=== PATIENT | male | born 1975 | race Caucasian/White ===

== ENCOUNTER 2021-10-08 10:30 | Inpatient (IN) | payer MEDICARE ==
[~2021-10-08] VITALS: Ht 182.9 cm; Wt 84.8 kg
[2021-10-08] MEDS ORDERED: LACTULOSE SYRUP 10GM/15ML (ENULOSE) 30ML UDC PO PRN (11:15)
[2021-10-08] MEDS ORDERED: MELATONIN 3 MG TABLET PO PRN (11:15)
[2021-10-08] MEDS ORDERED: CALCIUM CARBONATE 500 MG (TUMS) TAB.CHEW PO PRN (11:15)
[2021-10-08] MEDS ORDERED: ONDANSETRON 4 MG (ZOFRAN) ORAL DISSOLVE TAB PO PRN (11:15)
[2021-10-08] MEDS ORDERED: ACETAMINOPHEN 325 MG TABLET PO PRN (11:15)
[2021-10-08] MEDS ORDERED: DOCUSATE SODIUM 100 MG (COLACE) CAP PO PRN (11:15)
[2021-10-08] MEDS ORDERED: FLEET ENEMA ADULT 1 EA BTL PR PRN (11:15)
[2021-10-08] MEDS ORDERED: LOPERAMIDE 2 MG (IMODIUM) TABLET PO PRN (11:15)
[2021-10-08] MEDS ORDERED: diphenhydrAMINE 25 MG TAB (BENADRYL) PO PRN (11:15)
[2021-10-08] MEDS ORDERED: BISACODYL 10 MG SUPP (DULCOLAX) PR PRN (11:15)
[2021-10-08] MEDS ORDERED: guaiFENesin/CODEINE (ROBITUSSIN AC) 10ML UDC PO PRN (11:15)
[2021-10-08] MEDS ORDERED: ALPRAZolam 0.25 MG (XANAX) TAB PO PRN (11:15)
[2021-10-08] MEDS ORDERED: BACI28.4 TP (13:02)
[2021-10-08] MEDS ORDERED: OXYC1TAB15 PO (13:02)
[2021-10-08] MEDS ORDERED: DIAZ5TAB49 PO (13:02)
[2021-10-08] MEDS ORDERED: BACL10TA PO (13:02)
[2021-10-08 15:00] VITALS: BP 124/84
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
--- NOTE | 2021-10-08 16:07 | Occupational Therapy Eval ---
OT Evaluation-General/PLF Medical Diagnosis Admission Date Oct 08, 2021 at 14:39 Medical Diagnosis: s/p T10-L4 Fusion Onset Date: Oct 01, 2021 Therapy Diagnosis Therapy Diagnosis: decreased ADL status Precautions Comments No lifting >15 lbs for 6 weeks, then nothing >35lbs for another 6 weeks. No excessive bending, lifting, twisting at the waist for the first 3 months. Wear rigid neck collar at all times when out of bed (do not have to wear in a shower). A soft collar can be worn in bed sleeping and when eating. Keep incision covered with plastic when showering for 2 weeks. Weight Bear Status Weight Bearing Restriction: Weight Bearing/Tolerated Location Restriction: LT FOOT (With CAM boot) Referral Physician: Garrick Referral Reason: Evaluation/Treatment Medical History Additional Medical History TBI, PTSD Current History Pt was cutting down a tree and woke up underneath. Chance fx L1, Superior end plate fx L2, R lateral mass fx C6, Avulsion fx L ankle (weight bearing as tolerated with CAM boot), S/P T10-L4 Fusion (10/01/21) Social History Pt lives in a trailer home by himself, has a ramp into the door made out of a plywood sheet. He may go to his S.O.'s house at discharge. Her house is a multistory house, 4-5 steps into the side door with a hand rail. The dining room could be converted into a bedroom on the main level and there is a bathroom on the main level. Pt would not have to go upstairs. ADL-Prior Level of Function SCALE: Activities may be completed with or without assistive devices. 6-Hkyvxdldcf-sficeax completes the activity by him/herself with no assistance from a helper. 5-Set-up or Clean-up Assistance-helper sets up or cleans up; patient completes activity. [place] assists only prior to or following the activity. 4-Supervision or Touching Assistance-helper provides verbal cues and/or touching/steadying and/or contact guard assistance as patient completes activity. Assistance may be provided throughout the activity or intermittently. 3-Partial/Moderate Assistance-helper does LESS THAN HALF the effort. [place] lifts, holds or supports trunk or limbs, but provides less than half the effort. 2-Substantial/Maximal Assistance-helper does MORE THAN HALF the effort. [place] lifts or holds trunk or limbs and provides more than half the effort. 5-Xdwfhhqjy-rlznpj does ALL the effort. Patient does none of the effort to complete the activity. Or, the assistance of 2 or more helpers is required for the patient to complete the activity. If activity was not attempted, code reason: 7-Patient Refused. 9-Not Applicable-not attempted and the patient did not perform the activity before the current illness, exacerbation or injury. 10-Not Attempted due to Environmental Limitations-(lack of equipment, weather restraints, etc.). 88-Not Attempted due to Medical Conditions or Safety Concerns. ADL PLOF Comments Pt lives by himself, his trailer has a walk in shower. Pt may go stay with his S.O. who has a walk in shower on the main level of her house. At [facility], pt was independent with all ADLS and functional mobility, uses a cane outdoors. He indicates he has a walker and shower chair somewhere. Self Care: Independent DME/Equipment: Shower DME/Equipment Comments Uses a cane or crutch in public. Owns a shower chair and a walker but unsure exactly where they are OT Current Status Subjective Pt agreeable to OT evaluation, then OT/PT cotreat. Rates pain 9/10 in his back and states he is very anxious and nervous about being at a new place. Mental Status/Objective Patient Orientation: Person, Place, Time, Situation Attachments: Other-See Comments (CAM boot, TLSO brace, rigid neck collar) Current Dentures/Partials: No Hand Dominance: Right Upper Extremity ROM Slightly limited due to back brace and neck brace. BUE shoulder flexion to approx 120 degrees. Upper Extremity Coordination WFL Upper Extremity Strength grossly 3/5, not formally tested due to back precautions. ADL-Treatment Eating (QC): 7 Oral Hygiene (QC): 7 Shower/Bathe Self (QC): 7 Upper Body Dressing (QC): 7 Lower Body Dressing (QC): 7 On/Off Footwear (QC): 7 Toileting Hygiene (QC): 7 Other Treatments OT evaluation complete. OT/PT cotreat due to skill of 2 clinicians required which a rehab department manager could not perform in order to decrease fall risk, increase activity tolerance, and due to pt's limitations in strength, endurance, pain, transfers/mobility, dynamic standing balance. OT focused on UE placement, cues for sequencing and safety and ADLs, PT focused on LE placement, gross overall movement, transfers/mobility. Pt completed functional transfers out of car, functional mobility using FWW, uneven surface and steps. Pt took seated rest breaks as needed, easily distracted with conversations requiring redirection to tasks. Pt then completed functional kitchen task, using a commodities broker as needed to locate 12 neil bags. Pt required cues to locate the last several neil bags and to look through all cabinets and drawers. OT educated pt on squaring up shoulders and body with cabinets in order to maintain precautions. Pt took seated rest break, then used FWW to transfer into his room. Post tx, pt supine in bed, call light in reach and all needs met. Supine <-> sit independently, CGA sit to/from stand transfers, CGA car transfer. Occasional cues for positioning and safety. Education OT Patient Education: Correct positioning, Energy conservation, Exercise program, Modified ADL techniques, Progress toward Goal/Update tx plan, Purpose of tx/functional activities, Rehab process Teaching Recipient: Patient Teaching Methods: Discussion Response to Teaching: Verbalize Understanding OT Short Term Goals Short Term Goals Time Frame: Oct 16, 2021 Shower/bathe self: 4 Lower body dressin Putting on/taking off footwear: 4 OT Child Welfare Social Worker Goals Longterm Goals Time Frame: Oct 30, 2021 Eating (QC): 6 Oral Hygiene (QC): 6 Toileting Hygiene (QC): 6 Shower/Bathe Self (QC): 6 Upper Body Dressing (QC): 6 Lower Body Dressing (QC): 6 On/Off Footwear (QC): 6 Additional Goals: 1-Demonstrate ADL Tasks, 2-Verbalize Understanding, 3- ImproveStrength/Lety 1=Demonstrate adherence to instructed precautions during ADL tasks. 2=Patient will verbalize/demonstrate understanding of assistive devices/modifications for ADL. 3=Patient will improve strength/tolerance for activity to enable patient to perform ADL's. OT Education/Plan Problem List/Assessment Assessment: Decreased Activ Tolerance, Decreased Safety Aware, Decreased UE Strength, Impaired Funct Balance, Impaired I ADL's, Impaired Self-Care Skills Discharge Recommendations Plan/Recommendations: Continue POC Equpiment Recommendations-D/C: Bath Chair, Nurse Advisor Treatment Plan/Plan of Care Patient would benefit from OT for education, treatment and training to promote independence in ADL's, mobility, safety and/or upper extremity function for ADL's. Plan of Care: ADL Retraining, Functional Mobility, Group Exercise/Act as Ind, UE Funct Exercise/Act Treatment Duration: Oct 30, 2021 Frequency: At least 5 of 7 days/Wk (IRF) Estimated Hrs Per Day: 1.5 hours per day Rehab Potential: Fair Time/GCodes Start Time: 14:45 Stop Time: 16:15 Total Time Billed (hr/min): 90 Billed Treatment Time [id number] OT evaluation, [id number] OT/PT cotreat 1, EVM (10'), FA 5 (80') JENNA BUSTOS OT Oct 08, 2021 16:07
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
[2021-10-08] MEDS ORDERED: BACLOFEN 10 MG (LIORESAL) TAB PO PRN (17:15)
[2021-10-08] MEDS: oxyCODONE/APAP 7.5-325 MG (PERCOCET 7.5) TABLET PO PRN ×2 (17:47→21:52)
[2021-10-08 21:18] VITALS: BP 97/69
[2021-10-08] MEDS: polyethylene glycoL POWDER 17 GM (MIRALAX) PACK PO SCH (21:27)
[2021-10-08] MEDS: SENNA W/DOCUSATE (SENOKOT S) TABLET PO SCH (21:28)
[2021-10-08] MEDS: DIAZEPAM 5 MG (VALIUM) TABLET PO PRN (21:51)
[2021-10-08] MEDS: DOCUSATE SODIUM 100 MG (COLACE) CAP PO SCH (21:51)
[2021-10-09 05:34] LABS: BASOPHILS # (AUTO) 0.1 10^3/uL (0.0-0.1); BASOPHILS % (AUTO) 1 % (0-10); EOSINOPHILS # (AUTO) 0.4 10^3/uL (0.0-0.3); EOSINOPHILS % (AUTO) 2 % (0-10); HEMATOCRIT 32 % (40-54); HEMOGLOBIN 10.6 g/dL (13.3-17.7); LYMPHOCYTES # (AUTO) 3.8 10^3/uL (1.0-4.0); LYMPHOCYTES % (AUTO) 18 % (12-44); MEAN CORPUSCULAR HEMOGLOBIN 30 pg (25-34); MEAN CORPUSCULAR HGB CONC 33 g/dL (32-36); MEAN CORPUSCULAR VOLUME 90 fL (80-99); MEAN PLATELET VOLUME 8.7 fL (9.0-12.2); MONOCYTES # (AUTO) 1.8 10^3/uL (0.0-1.0); MONOCYTES % (AUTO) 8 % (0-12); NEUTROPHILS # (AUTO) 13.9 10^3/uL (1.8-7.8); NEUTROPHILS % (AUTO) 66 % (42-75); PLATELET COUNT 678 10^3/uL (130-400); WHITE BLOOD COUNT 21.2 10^3/uL (4.3-11.0)
[2021-10-09 05:56] LABS: ALBUMIN 3.4 GM/DL (3.2-4.5)
[2021-10-09 05:57] LABS: POTASSIUM 3.9 MMOL/L (3.6-5.0)
[2021-10-09 05:59] LABS: TOTAL PROTEIN 7.2 GM/DL (6.4-8.2)
[2021-10-09 06:01] LABS: BILIRUBIN,TOTAL 0.7 MG/DL (0.1-1.0)
[2021-10-09 06:03] LABS: CREATININE SERUM 0.72 MG/DL (0.60-1.30)
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
[2021-10-09 07:02] LABS: LYMPHOCYTES % (MANUAL) 23 %; MONOCYTES % (MANUAL) 7 %; NEUTROPHILS % (MANUAL) 70 %; PLATELET CLUMPS SLIGHT; POLYCHROMASIA SLIGHT
[2021-10-09] MEDS: polyethylene glycoL POWDER 17 GM (MIRALAX) PACK PO SCH ×2 (07:26→21:35)
[2021-10-09] MEDS: DOCUSATE SODIUM 100 MG (COLACE) CAP PO SCH ×2 (07:26→21:35)
[2021-10-09] MEDS: SENNA W/DOCUSATE (SENOKOT S) TABLET PO SCH ×2 (07:26→21:35)
[2021-10-09] MEDS: ENOXAPARIN 40 MG/0.4 ML (LOVENOX) SYR SC SCH (07:26)
[2021-10-09 07:28] VITALS: BP 107/63
[2021-10-09] MEDS: oxyCODONE/APAP 7.5-325 MG (PERCOCET 7.5) TABLET PO PRN ×4 (07:31→20:33)
[2021-10-09] MEDS: BACITRACIN OINTMENT 28 GM TUBE TP SCH (08:24)
--- NOTE | 2021-10-09 09:27 | Occupational Ther Daily Note ---
OT Current Status-Daily Note Subjective Pt in bathroom on OT arrival, agreeable to OT Tx. 9/10 pain in neck and back, nurse notified and medication provided. ADL-Treatment Therapy Code Descriptions/Definitions Functional Josephine Measure: 0=Not Assessed/NA 4=Minimal Assistance 1=Total Assistance 5=Supervision or Setup 2=Maximal Assistance 6=Modified Josephine 3=Moderate Assistance 7=Complete IndependenceSCALE: Activities may be completed with or without assistive devices. 0-Jryvnnylhj-ayntwcq completes the activity by him/herself with no assistance from a helper. 5-Set-up or Clean-up Assistance-helper sets up or cleans up; patient completes activity. [place] assists only prior to or following the activity. 4-Supervision or Touching Assistance-helper provides verbal cues and/or touching/steadying and/or contact guard assistance as patient completes activit y. Assistance may be provided throughout the activity or intermittently. 3-Partial/Moderate Assistance-helper does LESS THAN HALF the effort. [place] lifts, holds or supports trunk or limbs, but provides less than half the effort. 2-Substantial/Maximal Assistance-helper does MORE THAN HALF the effort. [place] lifts or holds trunk or limbs and provides more than half the effort. 7-Qsbgdchrp-fxngog does ALL the effort. Patient does none of the effort to complete the activity. Or, the assistance of 2 or more helpers is required for the patient to complete the activity. If activity was not attempted, code reason: 7-Patient Refused. 9-Not Applicable-not attempted and the patient did not perform the activity before the current illness, exacerbation or injury. 10-Not Attempted due to Environmental Limitations-(lack of equipment, weather restraints, etc.). 88-Not Attempted due to Medical Conditions or Safety Concerns. Eating (QC): 6 (Per pt report) Oral Hygiene (QC): 6 (IND with oral care, pt does not complete prior but able to use mouthwash independently.) Shower/Bathe Self (QC): 3 (Min A with washing buttocks. Pt able to wash/dry UEs, chest/abdomen, LEs and periarea seated, usng figure 4 method to wash LEs. Min verbal cues required to maintain precautions.) Upper Body Dressing (QC): 3 (Assistance provided with back and neck brace. Pt able to doff/don pull overshirt.) Lower Body Dressing (QC): 4 (CGA, pt able to thread LEs into pants using figure 4 method, CGA in stand for pant hike.) On/Off Footwear: 3 (Pt able to doff/don R gripper sock and shoe. Assistance with L CAM boot.) Toileting Hygiene (QC): 3 (Min A with hygiene, pt able to manage clothing.) Toilet Transfer (QC): 4 (SBA on/off toilet.) Other Treatment Pt seated on toilet, then used FWW to transfer to IA. Pt doffed braces and CAM boot, as well as clothing. Pt completed shower, required min verbal cues to maintain precautions throughout task. Pt instructed to remain seated throughout the entire shower due to not having CAM boot on, pt agreeable and followed instructions. Pt donned clothing and braces on SC, then used FWW to go to sink to complete oral care. Pt transferred to recliner in his room, [facility]. After rest break, pt used FWW to go into therapy gym, [facility]. In order to increase BUE strength, activity tolerance, and fine motor coordination, pt completed nut/bolt task, placing/removing nuts and bolts. OT/PT cotreat due to skill of 2 clincians required which a rehab aide could not perform in order to coordinate UE/LEs, decrease fall risk, and due to pt's limitations in pain, endurance and dynamic standing balance. OT focused on UE placement, cues to maintain precautions and for sequencing and safety, PT focused on LE placement, gross overall movement, dynamic standing balance. Pt stood at FWW, hitting balloon back and forth, without supporting UEs on FWW. Pt able to complete 2 rounds, a few minutes each round. Post tx, pt in gym with PT, all needs met. Education OT Patient Education: Correct positioning, Energy conservation, Exercise program, Modified ADL techniques, Progress toward Goal/Update tx plan, Purpose of tx/functional activities, Rehab process Teaching Recipient: Patient Teaching Methods: Discussion Response to Teaching: Verbalize Understanding OT Short Term Goals Short Term Goals Time Frame: Oct 16, 2021 Shower/bathe self: 4 Lower body dressin Putting on/taking off footwear: 4 OT [facility] Goals [facility] Goals Time Frame: Oct 30, 2021 Eating (QC): 6 Oral Hygiene (QC): 6 Toileting Hygiene (QC): 6 Shower/Bathe Self (QC): 6 Upper Body Dressing (QC): 6 Lower Body Dressing (QC): 6 On/Off Footwear (QC): 6 Additional Goals: 1-Demonstrate ADL Tasks, 2-Verbalize Understanding, 3-Impro veStrength/Lety 1=Demonstrate adherence to instructed precautions during ADL tasks. 2=Patient will verbalize/demonstrate understanding of assistive devices/modifications for ADL. 3=Patient will improve strength/tolerance for activity to enable patient to perform ADL's. OT Education/Plan Problem List/Assessment Assessment: Decreased Activ Tolerance, Decreased UE Strength, Impaired Funct Balance, Impaired I ADL's, Impaired Self-Care Skills Discharge Recommendations Plan/Recommendations: Continue POC Treatment Plan/Plan of Care Patient would benefit from OT for education, treatment and training to promote independence in ADL's, mobility, safety and/or upper extremity function for ADL's. Plan of Care: ADL Retraining, Functional Mobility, Group Exercise/Act as Ind, UE Funct Exercise/Act Treatment Duration: Oct 30, 2021 Frequency: At least 5 of 7 days/Wk (IRF) Estimated Hrs Per Day: 1.5 hours per day Rehab Potential: Fair Time/GCodes Start Time: 08:00 Stop Time: 09:15 Total Time Billed (hr/min): 75 Billed Treatment Time OT tx x60', Cotreat x15' 1, ADL 3 (45'), FA 2 (30') JENNA BUSTOS OT Oct 09, 2021 09:27
--- NOTE | 2021-10-09 10:12 | Physical Therapy Daily Note ---
PT Daily Note-Current Subjective Patient in therapy gym pre tx, agrees to PT,has 9/10 back pain, nurse gives pain meds during tx. Will be co-treating with OT for part of tx to work on balance training in a safer environment. Appearance Patient in bed post tx with nurse call, phone, tray, all needs met. Mental Status Patient Orientation: Person, Place, Situation Transfers SCALE: Activities may be completed with or without assistive devices. 1-Bmznpuynqr-qlwoykc completes the activity by him/herself with no assistance from a helper. 5-Set-up or Clean-up Assistance-helper sets up or cleans up; patient completes activity. [place] assists only prior to or following the activity. 4-Supervision or Touching Assistance-helper provides verbal cues and/or touching/steadying and/or contact guard assistance as patient completes activity. Assistance may be provided throughout the activity or intermittently. 3-Partial/Moderate Assistance-helper does LESS THAN HALF the effort. [place] lifts, holds or supports trunk or limbs, but provides less than half the effort. 2-Substantial/Maximal Assistance-helper does MORE THAN HALF the effort. [place] l ifts or holds trunk or limbs and provides more than half the effort. 3-Zoshbdpos-ehtkfw does ALL the effort. Patient does none of the effort to complete the activity. Or, the assistance of 2 or more helpers is required for the patient to complete the activity. If activity was not attempted, code reason: 7-Patient Refused. 9-Not Applicable-not attempted and the patient did not perform the activity before the current illness, exacerbation or injury. 10-Not Attempted due to Environmental Limitations-(lack of equipment, weather restraints, etc.). 88-Not Attempted due to Medical Conditions or Safety Concerns. Roll Left & Right (QC): 6 Sit to Lying (QC): 6 Sit to Stand (QC): 4 Chair/Nds-ie-Wgksp Xfer(QC): 4 Weight Bearing TLSO on when out of bed, lifting restriction of 15#, no bending or twisting, hard cervical collar on when out of bed, soft collar on when in bed or when eating, boot on when out of bed and he can be WBAT when he has his boot on. Gait Training Distance: 200'x2, 150' Walk 10 feet (QC): 4 Walk 50 ft with 2 Turns(QC): 4 Walk 150 ft (QC): 4 Gait Persons Needed: 1 Gait Assistive Device: FWW close SBA, antalgic, slow but steady Exercises Standing: Hip Abduction, Hamstring curls, Marching, Mini squats Standing Reps: 15 NuStep Minutes: 15 NuStep Workload: 4 Neuromuscular standing hitting balloon back and forth with no UE support Treatments PT performed bed mobility and transfers, ambulation, LE strengthening, standing balance and safety during balance activity, OT performed UE positioning and safety during activity, balance activity Assessment Current Status: Fair Progress no LOB with balance activity but did have occasional unsteadiness and needed to grab the walker PT Short Term Goals Short Term Goals Time Frame: Oct 15, 2021 Roll Left & Right: 6 Sit to lyin Lying to sitting on side of be: 6 Sit to stand: 5 Chair/xdd-za-ffunz transfer: 5 Walk 10 feet: 5 Walk 50 feet with two turns: 5 Walk 150 feet: 5 PT Cabin Equipment Supervisor Goals Cabin Equipment Supervisor Goals PT Cabin Equipment Supervisor Goals Time Frame: Oct 29, 2021 Roll Left & Right (QC): 6 Sit to Lying (QC): 6 Lying-Sitting on Side/Bed(QC): 6 Sit to Stand (QC): 6 Chair/Pyk-vd-Lxtzr Xfer(QC): 6 Toilet Transfer (QC): 6 Car Transfer (QC): 6 Does the Patient Walk: Yes Walk 10 feet (QC): 6 Walk 50ft with 2 Turns (QC): 6 Walk 150 ft (QC): 6 Walking 10ft on Uneven Surface: 6 1 Step (curb) (QC): 5 4 Steps (QC): 5 12 Steps (QC): 5 Picking up an Object (QC): 6 Wheel 50 feet with 2 turns (QC: 9 Wheel 150 feet: 9 PT Plan Problem List Problem List: Activity Tolerance, Functional Strength, Safety, Balance, Gait, Transfer, ROM Treatment/Plan Treatment Plan: Continue Plan of Care Treatment Plan: Bed Mobility, Education, Functional Activity Lety, Functional Strength, Group Therapy, Gait, Safety, Therapeutic Exercise, Transfers Treatment Duration: Oct 29, 2021 Frequency: At least 5 of 7 days/Wk (IRF) Estimated Hrs Per Day: 1.5 hours per day Patient and/or Family Agrees t: Yes Safety Risks/Education Patient Education: Gait Training, Transfer Techniques, Reviewed Precautions, Correct Positioning, Safety Issues Teaching Recipient: Patient Teaching Methods: Demonstration, Discussion Response to Teaching: Reinforcement Needed Time/GCodes Time In: 0900 Time Out: 1015 Total Billed Treatment Time: 75 Total Billed Treatment 1 visit NM 15' FA 30' EX 30' DEAN HARTMAN PT Oct 09, 2021 10:12
--- NOTE | 2021-10-09 14:16 | ST Cognitive Linguistic Eval ---
Speech Evaluation-General Medical Diagnosis s/p T10-L4 Fusion Onset Date: Oct 01, 2021 Therapy Diagnosis Therapy Diagnosis: Cognitive Linguistic Function Grossly WNL Precautions Precautions: Fall Precautions/Isolations: Standard Precautions Referral Referring Physician: Dr. Isis Mccauley Reason for Referral: Evaluation/Treatment Medical History Pertinent Medical History: Smoking, TBI Current History The patient is a 45 year old male with a past medical history of anixiety, ADD, PTSD, and TBI, who was admitted to [facility] with a diagnosis of L2 vertebral fracture, C5 vertebral fracture, and avulsion of the left medial malleolus (s/p T10-L4 vertebral fusion) after having a tree limb fall on him. Reviewed History: Yes Social History Current Living Status: Alone Speech PLF-Current Status Prior Level of Function The patient stated he was independent with ADL's prior to admission. The patient does report a prior TBI which resulted in minimal cognition difficulties. The patient does not report any new difficulties with speech, language, or cognition following his recent accident. The patient does report he is unable to read or write. Subjective The patient was lying in bed, awake and alert. The patient greeted the clinician appropriately and was agreeable to participation in the cognitive linguistic assessment. Language Eval: Auditory Comprehends Simple Yes/No Ques: Functional Indent/Objects Multiple [place]: Functional Ident/Pics in Multiple [place]: Functional Follows 1-Step Commands: Functional Follows Complex Directions: Functional Follows General Conversations: Functional Language Eval: Verbal Language Completes Spontaneous Greeting: Functional Produces Auto, Serial Info: Functional Imitates Simple Words/Phrases: Functional Word Finding: Functional Requests Basic Needs: Functional States Basic Personal Info: Functional Expresses Complex Ideas: Functional Cognitive Patient Orientation The patient is independently oriented to self, location, month, day of week, date, and year. Objective Cognitive Domain Attention: Mild Memory: Mild Problem Solving: Functional Executive Functions: WNL Composite Severity Rating: WNL Clock Drawing Severity Rating: WN Objective Formal/Standardized Tests [facility] Status ([facility]) Results The patient demonstrated a result of +26/30 correlating to a mild neurocognitive impairment per UMS. Oral Motor/Speech Production The patient does not display dysarthria or apraxia of speech. The patient remains 100% intelligible in known and unknown contexts. Impression The patient presented with cognitive linguistic skills grossly within normal limits. While the patient does display a result of +26/30 on the SLUMS, the patient reports he is functioning at baseline. Throughout the evaluation, the patient displayed errors with delayed recall (recalled 4/5 items), working memory (was unable to repeat four digits in reverse), and was unable to place the hands of the clock correctly. Speech Patient Assess Expression of Ideas/Wants: Exhibits (3) Understanding Verbal Content: Usually Understands (3) Brief Interview-Mental Status: Yes Repetition of Three Words: Three (3) Temporal Orientation: Year: Correct (3) Temporal Orientation: Month: Accurate within 5 days(2) Temporal Orientation: Day: Correct (1) Recall : Wear to say "Sock": Yes, no cue required (2) Recall : Color: Yes, no cue required (2) Recall : Bed: Yes,after cueing (1) Memory/Recall Ability: Current season, Location of own room, Staff names and faces, That he or she is in a hsp/hsp unit Speech-Plan Treatment Plan Speech Therapy Treatment Plan: Discontinue ST Frequency: 1 time per week Estimated Hrs Per Day: .5 hour per day Rehab Potential: Fair Pt/Family Agrees to Plan: Yes Safety Risks/Education Teaching Recipient: Patient Teaching Methods: Discussion Response to Teaching: Verbalize Understanding Education Topics Provided: Plan of Care, Results of SLUMS Time Speech Therapy Time In: 11:30 Speech Therapy Time Out: 12:00 Total Billed Time: 30 Billed Treatment Time 1, ULISSES PACHECO ELIZABETH ST Oct 09, 2021 14:16
[2021-10-09 20:07] VITALS: BP 96/55
[2021-10-09] MEDS: NICOTINE 21 MG (NICODERM) PATCH TD SCH (20:21)
--- NOTE | 2021-10-10 06:57 | PM&R Progress Note ---
Subjective HPI/CC On Admission Date Seen by Provider: Oct 10, 2021 Time Seen by Provider: 13:00 Subjective/Events-last exam 10/10/2021: Patient doing well No pain is reported except for usual injury pain Nicotine patch maintain for smoking cessation Girlfriend at the bedside Talked about an alert system at home Review of Systems General: Fatigue, Malaise Objective Exam Vital Signs Vital Signs Date Time Temp Pulse Resp B/P (MAP) Pulse Ox O2 Delivery O2 Flow Rate FiO2 10/10/21 21:30 Room Air 10/10/21 19:47 36.9 97 16 118/68 (85) 97 Capillary Refill : General Appearance: No Apparent Distress, WD/WN, Chronically ill HEENT: PERRL/EOMI, Normal ENT Inspection, Pharynx Normal Neck: Full Range of Motion, Normal Inspection, Non Tender, Supple, Carotid Bruit Respiratory: Chest Non Tender, Lungs Clear, Normal Breath Sounds, No Accessory Muscle Use, No Respiratory Distress Cardiovascular: Regular Rate, Rhythm, No Edema, No Gallop, No JVD, No Murmur, Normal Peripheral Pulses Gastrointestinal: Normal Bowel Sounds, No Organomegaly, No Pulsatile Mass, Non Tender, Soft Back: Normal Inspection, No CVA Tenderness, No Vertebral Tenderness Extremity: Normal Capillary Refill, Normal Inspection, Normal Range of Motion, Non Tender, No Calf Tenderness, No Pedal Edema Neurologic/Psychiatric: Alert, Oriented x3, Abnormal Gait, Depressed Affect, Motor Weakness Skin: Normal Color, Warm/Dry Lymphatic: No Adenopathy Results/Procedures Lab Patient resulted labs reviewed. FIM Transfers Therapy Code Descriptions/Definitions Functional [place] Measure: 0=Not Assessed/NA 4=Minimal Assistance 1=Total Assistance 5=Supervision or Setup 2=Maximal Assistance 6=Modified [place] 3=Moderate Assistance 7=Complete IndependenceSCALE: Activities may be completed with or without assistive devices. 8-Dnhriokupx-kivvcao completes the activity by him/herself with no assistance from a helper. 5-Set-up or Clean-up Assistance-helper sets up or cleans up; patient completes a ctivity. [place] assists only prior to or following the activity. 4-Supervision or Touching Assistance-helper provides verbal cues and/or touching/steadying and/or contact guard assistance as patient completes activity. Assistance may be provided throughout the activity or intermittently. 3-Partial/Moderate Assistance-helper does LESS THAN HALF the effort. [place] lifts, holds or supports trunk or limbs, but provides less than half the effort. 2-Substantial/Maximal Assistance-helper does MORE THAN HALF the effort. [place] lifts or holds trunk or limbs and provides more than half the effort. 9-Lhmpxbxaw-aakods does ALL the effort. Patient does none of the effort to complete the activity. Or, the assistance of 2 or more helpers is required for the patient to complete the activity. If activity was not attempted, code reason: 7-Patient Refused. 9-Not Applicable-not attempted and the patient did not perform the activity before the current illness, exacerbation or injury. 10-Not Attempted due to Environmental Limitations-(lack of equipment, weather restraints, etc.). 88-Not Attempted due to Medical Conditions or Safety Concerns. Roll Left to Right (QC): 6 Sit to Lying (QC): 6 Sit to Stand (QC): 4 Chair/Gli-nq-Ugwlh Xfer(QC): 4 Car Transfer (QC): 4 Gait Training Does the Patient Walk?: Yes Distance: 200'x2, 150' Walk 10 feet (QC): 4 Walk 50 ft with 2 Turns(QC): 4 Walk 150 ft (QC): 4 Walking 10ft/uneven surface-QC: 4 Gait Persons Needed: 1 Gait Assistive Device: FWW Wheelchair Training Does the Pt Use a Wheelchair?: No Wheel 50 ft with 2 turns (QC): 9 Wheel 150 ft (QC): 9 Stair Training 1 Step (curb) (QC): 4 4 Steps (QC): 4 12 Steps (QC): 88 Balance Picking up an Object (QC): 4 (CGA using a piano bench assembler) ADL-Treatment Eating (QC): 6 (Per pt report) Oral Hygiene (QC): 6 (IND with oral care, pt does not complete prior but able to use mouthwash independently.) Shower/Bathe Self (QC): 3 (Min A with washing buttocks. Pt able to wash/dry UEs, chest/abdomen, LEs and periarea seated, usng figure 4 method to wash LEs. Min verbal cues required to maintain precautions.) Upper Body Dressing (QC): 3 (Assistance provided with back and neck brace. Pt able to doff/don pull overshirt.) Lower Body Dressing (QC): 4 (CGA, pt able to thread LEs into pants using figure 4 method, CGA in stand for pant hike.) On/Off Footwear (QC): 3 (Pt able to doff/don R gripper sock and shoe. Assistance with L CAM boot.) Toileting Hygiene (QC): 3 (Min A with hygiene, pt able to manage clothing.) Toilet Transfer (QC): 4 (SBA on/off toilet.) Assessment/Plan Assessment and Plan Assess & Plan/Chief Complaint Assessment: s/p T10-L4 Fusion Smoker Leukocytosis Anemia acute blood loss Thrombocytosis TBI hx ADHD Plan: Nicotine patch Monitor wbc Add PCT to labs 10/10/2021: Supportive care Incentive spirometer Nicotine patch (1) Trauma (2) Anemia ENEDINA MEIER DO Oct 10, 2021 06:57
--- NOTE | 2021-10-10 06:57 | Individualized Plan of Care ---
Individualized Plan of Care Rehab Nursing IPOC Order Admission Date Oct 08, 2021 at 14:39 Current Orders Orders Admission Order(Inpt,Obs,Sdc) (10/08/21 11:15) Vital Signs: Per Unit Policy ( 08,16,00 (10/08/21 11:15) Agustín Boothe , (10/08/21 11:15) Sequential Compression Device (10/08/21 11:15) Director Camp-Inpt Rehab Con (10/08/21 11:15) Rehab Nursing Orders-Ipoc (10/08/21 11:15) Physical Therapy Rehab Orders (10/08/21 11:15) Occupational Therapy Rehab Ord (10/08/21 11:15) Speech Therapy Rehab Orders (10/08/21 11:15) Cbc With Automated Diff (10/09/21 06:00) Comprehensive Metabolic Panel (10/09/21 06:00) Precautions (Aru) (10/08/21 11:15) Weekly Weight WEEK (10/08/21 11:15) Rehab-Intensity Of Therapy (10/08/21 11:15) Initiate Admission Nursing Pro .admission (10/08/21 11:15) Alprazolam Tablet (Xanax Tablet) (10/08/21 11:15) Calcium Carbonate Chew Tablet (Antacid C (10/08/21 11:15) Diphenhydramine Tablet (Benadryl Tablet) (10/08/21 11:15) Docusate Sodium Capsule (Colace Capsule) (10/08/21 21:00) Docusate Sodium Capsule (Colace Capsule) (10/08/21 11:15) Bisacodyl Suppository (Dulcolax Supposit (10/08/21 11:15) Lactulose Oral Solution (Enulose Oral So (10/08/21 11:15) Na Phos/Na Biphos Enema (Fleet Enema Luther (10/08/21 11:15) Guaifenesin/Codeine Syrup (Robitussin Ac (10/08/21 11:15) Loperamide Tablet (Imodium Tablet) (10/08/21 11:15) Melatonin Tablet (Melatonin Tablet) (10/08/21 11:15) Polyethylene Glycol Powder Pkt (Miralax (10/08/21 21:00) Ondansetron Oral Dissolve Tab (Zofran (10/08/21 11:15) Senna S Tablet (Senokot S Tablet) (10/08/21 21:00) Acetaminophen Tablet/Caplet (Tylenol T (10/08/21 11:15) Code/Resuscitation (10/08/21 11:15) Initiate Admission Nursing Pro .admission (10/08/21 11:15) Admission Arrival Bed Request (10/08/21 14:39) General/Regular (10/08/21 Dinner) Patient Visit (10/08/21 ) Pt Eval Moderate Complexity (10/08/21 ) Exercise Therap, Ea 15 Min (10/08/21 ) Functional Activities, Ea 15 (10/08/21 ) Bacitracin Ointment (Bacitracin Ointment (10/08/21 17:15) Baclofen Tablet (Lioresal Tablet) (10/08/21 17:15) Diazepam Tablet (Valium Tablet) (10/08/21 17:15) Oxycodone/Apap 7.5/325mg Tab (Percocet (10/08/21 17:15) Enoxaparin Injection (Lovenox Injection) (10/09/21 09:00) Manual Differential (10/09/21 05:10) Procalcitonin (Pct) (10/09/21 09:31) Nicotine Patch (Nicoderm Patch) (10/09/21 09:45) Gamma Glutamyl Transferase Ggt (10/09/21 09:33) Patch Removal (Patch Removal) (10/10/21 08:59) Patient Visit (10/09/21 ) Speech Sound Lang Comp (10/09/21 ) Treat. Speech/Lang/Voice (10/09/21 ) Patient Visit (10/09/21 ) Ex Neuromuscular, Ea 15 Min (10/09/21 ) Functional Activities, Ea 15 (10/09/21 ) Exercise Therap, Ea 15 Min (10/09/21 ) Incentive Spirometry (Nursing) Q2H (10/10/21 09:10) Patient Visit (10/10/21 ) Exercise Therap, Ea 15 Min (10/10/21 ) Gait Training, Ea 15 Min (10/10/21 ) Rehab Nursing Orders: Ongoing Assess. of Cognitive Status, Ongoing Assess. of Function Status, Bladder Management, Bladder Scan, Bladder Training, Bowel Management, Bowel Training, Disease Management & Educaiton, DVT Prophylaxis, Fall Prevention, Fluid/Electrolyte/Nutrition Mgmt, Infection Prevention, Medication Management & Education, Management of Risks & Complications, Management of Skin Intergrity, Nutrition Management, Pain Management, Patient/Family Support, Safety Management, Weight Bearing Precaution, Wound Management Intensity of Therapy to be met Patient to be seen: Min.3h per day/5 of 7d PT IPOC Problem List: Activity Tolerance, Functional Strength, Safety, Balance, Gait, Transfer, ROM Treatment Plan: Continue Plan of Care Bed Mobility, Education, Functional Activity Lety, Functional Strength, Group Therapy, Gait, Safety, Therapeutic Exercise, Transfers Treatment Duration: Oct 29, 2021 Frequency: At least 5 of 7 days/Wk (IRF) Estimated Hrs Per Day: 1.5 hours per day OT IPOC Problems: Decreased Activ Tolerance, Decreased UE Strength, Impaired Funct Balance, Impaired I ADL's, Impaired Self-Care Skills OT Treatment, Training and Edu: Yes Plan of Care: ADL Retraining, Functional Mobility, Group Exercise/Act as Ind, UE Funct Exercise/Act Treatment Duration: Oct 30, 2021 Frequency: At least 5 of 7 days/Wk (IRF) Estimated Hrs Per Day: 1.[address] IPOC Speech Therapy Treatment Plan: Discontinue ST Treatment Duration: Oct 09, 2021 Frequency: 1 time per week Estimated Hrs Per Day: .5 hour per day Director Camp/Case Mgmt Director Camp/Case Managemen: Discharge Planning Dietitian/Sr. Manager Corporate Communications Dietitian/Sr. Manager Corporate Communications to monitor nutritional status and make changes and/or recommendations as needed and work with speech pathology on dietary upgrades as the occur. Physician IPOC Medical Issues being managed closely and that require the 24 hour availability of a physician: Patient with recent major trauma will need close monitoring for any decompensation especially with the use of narcotics and monitor for any fall risk Medical Issues: Bowel/Bladder Function, DVT Prophylaxis, Falls Precautions, Fluid/Electrolyte/Nutrition Balance, Infection Protection, Pain Management, Wound Care Brief Synthesis of Preadmission Screen, Post-Admission Evaluation, and Therapy Evaluations: PT and OT will focus on use of assistive devices for supportive care and fall risk prevention in order to return back to independent living Medical Prognosis: Good Anticipated Length of Stay: 7 days ENEDINA MEIER DO Oct 10, 2021 06:57
[2021-10-10 08:00] VITALS: BP 92/62
[2021-10-10] MEDS: NICOTINE 21 MG (NICODERM) PATCH TD SCH (08:53)
[2021-10-10] MEDS: oxyCODONE/APAP 7.5-325 MG (PERCOCET 7.5) TABLET PO PRN ×3 (08:53→21:09)
[2021-10-10] MEDS: ENOXAPARIN 40 MG/0.4 ML (LOVENOX) SYR SC SCH (08:55)
[2021-10-10] MEDS: SENNA W/DOCUSATE (SENOKOT S) TABLET PO SCH ×2 (08:55→21:53)
[2021-10-10] MEDS: NICOTINE PATCH REMOVAL TP SCH (08:56)
[2021-10-10] MEDS: polyethylene glycoL POWDER 17 GM (MIRALAX) PACK PO SCH ×2 (08:57→21:53)
[2021-10-10] MEDS: DOCUSATE SODIUM 100 MG (COLACE) CAP PO SCH ×2 (08:57→21:53)
--- NOTE | 2021-10-10 09:56 | Physical Therapy Daily Note ---
PT Daily Note-Current Subjective Pt in bed upon arrival and agrees to PT. pt reports pain 8/10 in ribs and back at incision site Pain Numeric Pain Scale: 8 Location: Medial Mental Status Patient Orientation: Person, Place, Time, Situation Transfers SCALE: Activities may be completed with or without assistive devices. 1-Dqkivalzsr-paqjdcq completes the activity by him/herself with no assistance from a helper. 5-Set-up or Clean-up Assistance-helper sets up or cleans up; patient completes activity. [place] assists only prior to or following the activity. 4-Supervision or Touching Assistance-helper provides verbal cues and/or touching/steadying and/or contact guard assistance as patient completes activity. Assistance may be provided throughout the activity or intermittently. 3-Partial/Moderate Assistance-helper does LESS THAN HALF the effort. [place] lifts, holds or supports trunk or limbs, but provides less than half the effort. 2-Substantial/Maximal Assistance-helper does MORE THAN HALF the effort. [place] lifts or holds trunk or limbs and provides more than half the effort. 5-Nexzgyymr-vnuyrw does ALL the effort. Patient does none of the effort to complete the activity. Or, the assistance of 2 or more helpers is required for the patient to complete the activity. If activity was not attempted, code reason: 7-Patient Refused. 9-Not Applicable-not attempted and the patient did not perform the activity before the current illness, exacerbation or injury. 10-Not Attempted due to Environmental Limitations-(lack of equipment, weather restraints, etc.). 88-Not Attempted due to Medical Conditions or Safety Concerns. Roll Left & Right (QC): 5 Sit to Lying (QC): 5 Lying to Sitting/Side of Bed(Q: 5 Sit to Stand (QC): 4 Weight Bearing TLSO on when out of bed, lifting restriction of 15#, no bending or twisting, hard cervical collar on when out of bed, soft collar on when in bed or when eating, boot on when out of bed and he can be WBAT when he has his boot on. Gait Training Does the Patient Walk?: Yes Distance: 200', 250' Walk 10 feet (QC): 4 Walk 50 ft with 2 Turns(QC): 4 Walk 150 ft (QC): 4 Gait Persons Needed: 1 Gait Assistive Device: FWW Pt has overall good gait velocity, VC for upright posture Exercises NuStep Minutes: 15 NuStep Workload: 5 Treatments Pt completes bed mobility, sits EOB and is able to don TLSO with set up A, requires A to don CAM boot. Pt sit to stand SBA and amb 200' to therapy gym. Pt completes NuStep 15 mins on WL of 5. Pt amb 250' back to room, able to doff TLSO, sit to supine SBA. Pt remains in bed with all needs met, call light in hand. Assessment Current Status: Good Progress Pt overall increasing strength, endurance, and mobility. Able to complete safe bed mobility and log roll PT Short Term Goals Short Term Goals Time Frame: Oct 15, 2021 Roll Left & Right: 6 Sit to lyin Lying to sitting on side of be: 6 Sit to stand: 5 Chair/zjl-id-zkfoo transfer: 5 Walk 10 feet: 5 Walk 50 feet with two turns: 5 Walk 150 feet: 5 PT Plasterer Spot Goals Chcf Goals PT Chcf Goals Time Frame: Oct 29, 2021 Roll Left & Right (QC): 6 Sit to Lying (QC): 6 Lying-Sitting on Side/Bed(QC): 6 Sit to Stand (QC): 6 Chair/Azr-yk-Cosfh Xfer(QC): 6 Toilet Transfer (QC): 6 Car Transfer (QC): 6 Does the Patient Walk: Yes Walk 10 feet (QC): 6 Walk 50ft with 2 Turns (QC): 6 Walk 150 ft (QC): 6 Walking 10ft on Uneven Surface: 6 1 Step (curb) (QC): 5 4 Steps (QC): 5 12 Steps (QC): 5 Picking up an Object (QC): 6 Wheel 50 feet with 2 turns (QC: 9 Wheel 150 feet: 9 PT Plan Treatment/Plan Treatment Plan: Continue Plan of Care Treatment Plan: Bed Mobility, Education, Functional Activity Lety, Functional Strength, Group Therapy, Gait, Safety, Therapeutic Exercise, Transfers Treatment Duration: Oct 29, 2021 Frequency: At least 5 of 7 days/Wk (IRF) Estimated Hrs Per Day: 1.5 hours per day Patient and/or Family Agrees t: Yes Time/GCodes Time In: 917 Time Out: 948 Total Billed Treatment Time: 31 Total Billed Treatment 1, Ex, GT FERMIN TORRES TICKET COUNTER Oct 10, 2021 09:56
[2021-10-10 19:47] VITALS: BP 118/68
--- NOTE | 2021-10-11 07:07 | PM&R Progress Note ---
Subjective HPI/CC On Admission Date Seen by Provider: Oct 11, 2021 Time Seen by Provider: 13:00 Subjective/Events-last exam 10/11/2021: Supportive care continues Up in a chair today Pain is well controlled Nicotine patch maintained 10/10/2021: Patient doing well No pain is reported except for usual injury pain Nicotine patch maintain for smoking cessation Girlfriend at the bedside Talked about an alert system at home Review of Systems General: Fatigue, Malaise Musculoskeletal: leg pain Objective Exam Vital Signs Vital Signs Date Time Temp Pulse Resp B/P (MAP) Pulse Ox O2 Delivery O2 Flow Rate FiO2 10/11/21 20:30 Room Air 10/11/21 19:29 37.0 106 18 114/66 (82) 97 Capillary Refill : General Appearance: No Apparent Distress, WD/WN, Chronically ill HEENT: PERRL/EOMI, Normal ENT Inspection, Pharynx Normal Neck: Full Range of Motion, Normal Inspection, Non Tender, Supple, Carotid Bruit Respiratory: Chest Non Tender, Lungs Clear, Normal Breath Sounds, No Accessory Muscle Use, No Respiratory Distress Cardiovascular: Regular Rate, Rhythm, No Edema, No Gallop, No JVD, No Murmur, Normal Peripheral Pulses Gastrointestinal: Normal Bowel Sounds, No Organomegaly, No Pulsatile Mass, Non Tender, Soft Back: Normal Inspection, No CVA Tenderness, No Vertebral Tenderness Extremity: Normal Capillary Refill, Normal Inspection, Normal Range of Motion, Non Tender, No Calf Tenderness, No Pedal Edema Neurologic/Psychiatric: Alert, Oriented x3, Abnormal Gait, Depressed Affect, Motor Weakness Skin: Normal Color, Warm/Dry Lymphatic: No Adenopathy Results/Procedures Lab Patient resulted labs reviewed. FIM Transfers Therapy Code Descriptions/Definitions Functional [place] Measure: 0=Not Assessed/NA 4=Minimal Assistance 1=Total Assistance 5=Supervision or Setup 2=Maximal Assistance 6=Modified [place] 3=Moderate Assistance 7=Complete IndependenceSCALE: Activities may be completed with or without assistive devices. 1-Hnjugxcflv-rktmecl completes the activity by him/herself with no assistance from a helper. 5-Set-up or Clean-up Assistance-helper sets up or cleans up; patient completes activity. [place] assists only prior to or following the activity. 4-Supervision or Touching Assistance-helper provides verbal cues and/or touching/steadying and/or contact guard assistance as patient completes activity. Assistance may be provided throughout the activity or intermittently. 3-Partial/Moderate Assistance-helper does LESS THAN HALF the effort. [place] lifts, holds or supports trunk or limbs, but provides less than half the effort. 2-Substantial/Maximal Assistance-helper does MORE THAN HALF the effort. [place] lifts or holds trunk or limbs and provides more than half the effort. 4-Dxfoloadi-ercfrq does ALL the effort. Patient does none of the effort to complete the activity. Or, the assistance of 2 or more helpers is required for the patient to complete the activity. If activity was not attempted, code reason: 7-Patient Refused. 9-Not Applicable-not attempted and the patient did not perform the activity before the current illness, exacerbation or injury. 10-Not Attempted due to Environmental Limitations-(lack of equipment, weather restraints, etc.). 88-Not Attempted due to Medical Conditions or Safety Concerns. Roll Left to Right (QC): 5 Sit to Lying (QC): 5 Sit to Stand (QC): 4 Chair/Kxd-gj-Qwoti Xfer(QC): 4 Car Transfer (QC): 4 Gait Training Does the Patient Walk?: Yes Distance: 200', 250' Walk 10 feet (QC): 4 Walk 50 ft with 2 Turns(QC): 4 Walk 150 ft (QC): 4 Walking 10ft/uneven surface-QC: 4 Gait Persons Needed: 1 Gait Assistive Device: FWW Wheelchair Training Does the Pt Use a Wheelchair?: No Wheel 50 ft with 2 turns (QC): 9 Wheel 150 ft (QC): 9 Stair Training 1 Step (curb) (QC): 4 4 Steps (QC): 4 12 Steps (QC): 88 Balance Picking up an Object (QC): 4 (CGA using a wire wheeler) ADL-Treatment Eating (QC): 6 (Per pt report) Oral Hygiene (QC): 6 (IND with oral care, pt does not complete prior but able to use mouthwash independently.) Shower/Bathe Self (QC): 3 (Min A with washing buttocks. Pt able to wash/dry UEs, chest/abdomen, LEs and periarea seated, usng figure 4 method to wash LEs. Min verbal cues required to maintain precautions.) Upper Body Dressing (QC): 3 (Assistance provided with back and neck brace. Pt able to doff/don pull overshirt.) Lower Body Dressing (QC): 4 (CGA, pt able to thread LEs into pants using figure 4 method, CGA in stand for pant hike.) On/Off Footwear (QC): 3 (Pt able to doff/don R gripper sock and shoe. Assistance with L CAM boot.) Toileting Hygiene (QC): 3 (Min A with hygiene, pt able to manage clothing.) Toilet Transfer (QC): 4 (SBA on/off toilet.) Assessment/Plan Assessment and Plan Assess & Plan/Chief Complaint Assessment: s/p T10-L4 Fusion Smoker Leukocytosis Anemia acute blood loss Thrombocytosis TBI hx ADHD Plan: Nicotine patch Monitor wbc Add PCT to labs 10/10/2021: Supportive care Incentive spirometer Nicotine patch 10/11/2021: Supportive care Discharge when stable (1) Trauma (2) Anemia ENEDINA MEIER DO Oct 11, 2021 07:07
[2021-10-11 08:00] VITALS: BP 107/65
[2021-10-11] MEDS: DOCUSATE SODIUM 100 MG (COLACE) CAP PO SCH ×2 (08:23→19:53)
[2021-10-11] MEDS: SENNA W/DOCUSATE (SENOKOT S) TABLET PO SCH ×2 (08:23→19:50)
[2021-10-11] MEDS: oxyCODONE/APAP 7.5-325 MG (PERCOCET 7.5) TABLET PO PRN ×3 (08:24→19:51)
[2021-10-11] MEDS: NICOTINE 21 MG (NICODERM) PATCH TD SCH (08:24)
[2021-10-11] MEDS: ENOXAPARIN 40 MG/0.4 ML (LOVENOX) SYR SC SCH (08:26)
[2021-10-11] MEDS: polyethylene glycoL POWDER 17 GM (MIRALAX) PACK PO SCH ×2 (08:26→19:53)
[2021-10-11] MEDS: NICOTINE PATCH REMOVAL TP SCH (08:29)
[2021-10-11] MEDS: BACITRACIN OINTMENT 28 GM TUBE TP SCH (11:04)
[2021-10-11 19:29] VITALS: BP 114/66
[2021-10-12] MEDS: oxyCODONE/APAP 7.5-325 MG (PERCOCET 7.5) TABLET PO PRN ×5 (03:16→16:11)
[2021-10-12] MEDS: DIAZEPAM 5 MG (VALIUM) TABLET PO PRN ×3 (04:53→20:35)
--- NOTE | 2021-10-12 05:42 | PM&R Progress Note ---
Subjective HPI/CC On Admission Date Seen by Provider: Oct 12, 2021 Time Seen by Provider: 09:00 Subjective/Events-last exam 10/12/2021: Pt is doing about the same Working out on the stationary bike Dyspnea noted Checking labs since they were abnormal when he first came in Nicotine patch maintained 10/11/2021: Supportive care continues Up in a chair today Pain is well controlled Nicotine patch maintained 10/10/2021: Patient doing well No pain is reported except for usual injury pain Nicotine patch maintain for smoking cessation Girlfriend at the bedside Talked about an alert system at home Review of Systems General: Fatigue, Malaise Musculoskeletal: leg pain Objective Exam Vital Signs Vital Signs Date Time Temp Pulse Resp B/P (MAP) Pulse Ox O2 Delivery O2 Flow Rate FiO2 10/12/21 21:00 Room Air 10/12/21 19:56 36.8 109 16 118/73 (88) 97 Capillary Refill : General Appearance: No Apparent Distress, WD/WN, Chronically ill HEENT: PERRL/EOMI, Normal ENT Inspection, Pharynx Normal Neck: Full Range of Motion, Normal Inspection, Non Tender, Supple, Carotid Bruit Respiratory: Chest Non Tender, Lungs Clear, Normal Breath Sounds, No Accessory Muscle Use, No Respiratory Distress Cardiovascular: Regular Rate, Rhythm, No Edema, No Gallop, No JVD, No Murmur, Normal Peripheral Pulses Gastrointestinal: Normal Bowel Sounds, No Organomegaly, No Pulsatile Mass, Non Tender, Soft Back: Normal Inspection, No CVA Tenderness, No Vertebral Tenderness Extremity: Normal Capillary Refill, Normal Inspection, Normal Range of Motion, Non Tender, No Calf Tenderness, No Pedal Edema Neurologic/Psychiatric: Alert, Oriented x3, Abnormal Gait, Depressed Affect, Motor Weakness Skin: Normal Color, Warm/Dry Lymphatic: No Adenopathy Results/Procedures Lab Laboratory Tests 10/12/21 10:33 Patient resulted labs reviewed. FIM Transfers Therapy Code Descriptions/Definitions Functional [place] Measure: 0=Not Assessed/NA 4=Minimal Assistance 1=Total Assistance 5=Supervision or Setup 2=Maximal Assistance 6=Modified [place] 3=Moderate Assistance 7=Complete IndependenceSCALE: Activities may be completed with or without assistive devices. 7-Vpomgdymvn-pcfyyaj completes the activity by him/herself with no assistance from a helper. 5-Set-up or Clean-up Assistance-helper sets up or cleans up; patient completes activity. [place] assists only prior to or following the activity. 4-Supervision or Touching Assistance-helper provides verbal cues and/or touching/steadying and/or contact guard assistance as patient completes activity. Assistance may be provided throughout the activity or intermittently. 3-Partial/Moderate Assistance-helper does LESS THAN HALF the effort. [place] lifts, holds or supports trunk or limbs, but provides less than half the effort. 2-Substantial/Maximal Assistance-helper does MORE THAN HALF the effort. [place] lifts or holds trunk or limbs and provides more than half the effort. 0-Jxqgtjfxv-ocysom does ALL the effort. Patient does none of the effort to complete the activity. Or, the assistance of 2 or more helpers is required for the patient to complete the activity. If activity was not attempted, code reason: 7-Patient Refused. 9-Not Applicable-not attempted and the patient did not perform the activity before the current illness, exacerbation or injury. 10-Not Attempted due to Environmental Limitations-(lack of equipment, weather restraints, etc.). 88-Not Attempted due to Medical Conditions or Safety Concerns. Roll Left to Right (QC): 5 Sit to Lying (QC): 5 Sit to Stand (QC): 4 Chair/Tnf-wy-Oqzju Xfer(QC): 4 Car Transfer (QC): 4 Gait Training Does the Patient Walk?: Yes Distance: 200', 250' Walk 10 feet (QC): 4 Walk 50 ft with 2 Turns(QC): 4 Walk 150 ft (QC): 4 Walking 10ft/uneven surface-QC: 4 Gait Persons Needed: 1 Gait Assistive Device: FWW Wheelchair Training Does the Pt Use a Wheelchair?: No Wheel 50 ft with 2 turns (QC): 9 Wheel 150 ft (QC): 9 Stair Training 1 Step (curb) (QC): 4 4 Steps (QC): 4 12 Steps (QC): 88 Balance Picking up an Object (QC): 4 (CGA using a manager mission) ADL-Treatment Eating (QC): 6 (Per pt report) Oral Hygiene (QC): 6 (IND with oral care, pt does not complete prior but able to use mouthwash independently.) Shower/Bathe Self (QC): 3 (Min A with washing buttocks. Pt able to wash/dry UEs, chest/abdomen, LEs and periarea seated, usng figure 4 method to wash LEs. Min verbal cues required to maintain precautions.) Upper Body Dressing (QC): 3 (Assistance provided with back and neck brace. Pt able to doff/don pull overshirt.) Lower Body Dressing (QC): 4 (CGA, pt able to thread LEs into pants using figure 4 method, CGA in stand for pant hike.) On/Off Footwear (QC): 3 (Pt able to doff/don R gripper sock and shoe. Assistance with L CAM boot.) Toileting Hygiene (QC): 3 (Min A with hygiene, pt able to manage clothing.) Toilet Transfer (QC): 4 (SBA on/off toilet.) Assessment/Plan Assessment and Plan Assess & Plan/Chief Complaint Assessment: s/p T10-L4 Fusion Smoker Leukocytosis Anemia acute blood loss Thrombocytosis TBI hx ADHD Plan: Nicotine patch Monitor wbc Add PCT to labs 10/10/2021: Supportive care Incentive spirometer Nicotine patch 10/11/2021: Supportive care Discharge when stable 10/12/2021: Pain control Monitor closely (1) Trauma (2) Anemia ENEDINA MEIER DO Oct 12, 2021 05:42
[2021-10-12] MEDS: NICOTINE 21 MG (NICODERM) PATCH TD SCH (07:10)
[2021-10-12] MEDS: DOCUSATE SODIUM 100 MG (COLACE) CAP PO SCH ×2 (07:11→20:35)
[2021-10-12] MEDS: SENNA W/DOCUSATE (SENOKOT S) TABLET PO SCH ×2 (07:11→21:47)
[2021-10-12] MEDS: ENOXAPARIN 40 MG/0.4 ML (LOVENOX) SYR SC SCH (07:11)
[2021-10-12] MEDS: NICOTINE PATCH REMOVAL TP SCH (07:12)
[2021-10-12 07:46] VITALS: BP 121/59
--- NOTE | 2021-10-12 09:04 | Occupational Ther Daily Note ---
OT Current Status-Daily Note Subjective Pt supine in bed. Pt states he didn't sleep well last night. Pt states he has back pain rated 5/10. Pt agreeable to OT tx. Mental Status/Objective Patient Orientation: Person, Place, Time, Situation ADL-Treatment Therapy Code Descriptions/Definitions Functional [place] Measure: 0=Not Assessed/NA 4=Minimal Assistance 1=Total Assistance 5=Supervision or Setup 2=Maximal Assistance 6=Modified [place] 3=Moderate Assistance 7=Complete IndependenceSCALE: Activities may be completed with or without assistive devices. 1-Szioapnngw-wdowjan completes the activity by him/herself with no assistance from a helper. 5-Set-up or Clean-up Assistance-helper sets up or cleans up; patient completes activity. [place] assists only prior to or following the activity. 4-Supervision or Touching Assistance-helper provides verbal cues and/or touching/steadying and/or contact guard assistance as patient completes activity. Assistance may be provided throughout the activity or intermittently. 3-Partial/Moderate Assistance-helper does LESS THAN HALF the effort. [place] lifts, holds or supports trunk or limbs, but provides less than half the effort. 2-Substantial/Maximal Assistance-helper does MORE THAN HALF the effort. [place] lifts or holds trunk or limbs and provides more than half the effort. 5-Uijwhapta-sjtead does ALL the effort. Patient does none of the effort to complete the activity. Or, the assistance of 2 or more helpers is required for the patient to complete the activity. If activity was not attempted, code reason: 7-Patient Refused. 9-Not Applicable-not attempted and the patient did not perform the activity before the current illness, exacerbation or injury. 10-Not Attempted due to Environmental Limitations-(lack of equipment, weather restraints, etc.). 88-Not Attempted due to Medical Conditions or Safety Concerns. Bathing Location: L Arm, R Arm, L Upper Leg, R Upper Leg, L Lower Leg (including foot), R Lower Leg (including foot), Chest, Abdomen, Buttocks, Perineal Area Shower/Bathe Self (QC): 5 (setup/cleanup) Upper Body Dressing (QC): 3 (assistance needed to reach straps of back brace when donning) Lower Body Dressing (QC): 5 (setup) On/Off Footwear: 3 (assistance needed to unstrap/strap CAM boot) Toileting Hygiene (QC): 6 (independent) Toilet Transfer (QC): 4 (SBA) Other Treatment Pt supine in bed. Pt transitioned supine to EOB independently. Pt transitioned to FWW, CGA, transitioned to bathroom, completed toileting then transitioned to SC. Pt doffed sock, CAM boot, pants, shirt, neck brace and back brace, min A needed to unstrap the top of the boot. Pt completed showering, donned shirt, pants, sock, CAM boot, neck brace and back brace, min A needed to reach straps on back brace, mod A needed to strap CAM boot. Pt educated on safety precautions while in shower, verbal cue needed after shower to wait and stand after he donned his CAM boot.. Pt transitioned back to recliner, FWW, SBA. Pt in recliner, call light in reach and all needs met. Education OT Patient Education: Correct positioning, Energy conservation, Modified ADL techniques, Progress toward Goal/Update tx plan, Purpose of tx/functional activities, Reviewed precautions, Rehab process Teaching Recipient: Patient Teaching Methods: Demonstration, Discussion Response to Teaching: Verbalize Understanding, Return Demonstration OT Short Term Goals Short Term Goals Time Frame: Oct 16, 2021 Shower/bathe self: 4 Lower body dressin Putting on/taking off footwear: 4 OT Fdc Goals Goldsmith Apprentice Goals Time Frame: Oct 30, 2021 Eating (QC): 6 Oral Hygiene (QC): 6 Toileting Hygiene (QC): 6 Shower/Bathe Self (QC): 6 Upper Body Dressing (QC): 6 Lower Body Dressing (QC): 6 On/Off Footwear (QC): 6 Additional Goals: 1-Demonstrate ADL Tasks, 2-Verbalize Understanding, 3- ImproveStrength/Lety 1=Demonstrate adherence to instructed precautions during ADL tasks. 2=Patient will verbalize/demonstrate understanding of assistive devices/modifications for ADL. 3=Patient will improve strength/tolerance for activity to enable patient to perform ADL's. OT Education/Plan Problem List/Assessment Assessment: Decreased Activ Tolerance, Decreased UE Strength, Impaired Coordination, Impaired Funct Balance, Impaired I ADL's, Impaired Self-Care Skills Discharge Recommendations Plan/Recommendations: Continue POC Treatment Plan/Plan of Care Patient would benefit from OT for education, treatment and training to promote independence in ADL's, mobility, safety and/or upper extremity function for ADL's. Plan of Care: ADL Retraining, Functional Mobility, Group Exercise/Act as Ind, UE Funct Exercise/Act Treatment Duration: Oct 30, 2021 Frequency: At least 5 of 7 days/Wk (IRF) Estimated Hrs Per Day: 1.5 hours per day Rehab Potential: Fair Time/GCodes Start Time: 08:00 Stop Time: 09:00 Total Time Billed (hr/min): 60 Billed Treatment Time 1, ADL 4 (60) JENNA BUSTOS OT Oct 12, 2021 09:04
[2021-10-12] MEDS: polyethylene glycoL POWDER 17 GM (MIRALAX) PACK PO SCH ×2 (09:52→21:47)
--- NOTE | 2021-10-12 10:03 | Physical Therapy Daily Note ---
PT Daily Note-Current Subjective Patient in recliner pre tx, agrees to PT, has unrated back pain, states he is trying to get used to the pain. Appearance Patient in recliner post tx with nurse call, phone, tray, all needs met. Mental Status Patient Orientation: Person, Place, Situation cervical collar and TLSO Transfers SCALE: Activities may be completed with or without assistive devices. 8-Nvxtxljtin-kaohtkn completes the activity by him/herself with no assistance from a helper. 5-Set-up or Clean-up Assistance-helper sets up or cleans up; patient completes activity. [place] assists only prior to or following the activity. 4-Supervision or Touching Assistance-helper provides verbal cues and/or touching/steadying and/or contact guard assistance as patient completes activity. Assistance may be provided throughout the activity or intermittently. 3-Partial/Moderate Assistance-helper does LESS THAN HALF the effort. [place] lifts, holds or supports trunk or limbs, but provides less than half the effort. 2-Substantial/Maximal Assistance-helper does MORE THAN HALF the effort. [place] lifts or holds trunk or limbs and provides more than half the effort. 5-Wmxdajfzq-tunfvo does ALL the effort. Patient does none of the effort to complete the activity. Or, the assistance of 2 or more helpers is required for the patient to complete the activity. If activity was not attempted, code reason: 7-Patient Refused. 9-Not Applicable-not attempted and the patient did not perform the activity before the current illness, exacerbation or injury. 10-Not Attempted due to Environmental Limitations-(lack of equipment, weather restraints, etc.). 88-Not Attempted due to Medical Conditions or Safety Concerns. Sit to Stand (QC): 6 Chair/Qwa-hh-Xuqkx Xfer(QC): 6 Weight Bearing TLSO on when out of bed, lifting restriction of 15#, no bending or twisting, hard cervical collar on when out of bed, soft collar on when in bed or when eating, boot on when out of bed and he can be WBAT when he has his boot on. Gait Training Distance: 300'x2 Walk 10 feet (QC): 6 Walk 50 ft with 2 Turns(QC): 6 Walk 150 ft (QC): 6 Gait Assistive Device: FWW slow but steady ambulation Exercises sit to stand from [facility] table 2 sets of 10 NuStep Minutes: 15 NuStep Workload: 4 (UE not used) Treatments transfers, ambulation, LE strengthening Assessment Current Status: Fair Progress improving general mobility PT Short Term Goals Short Term Goals Time Frame: Oct 15, 2021 Roll Left & Right: 6 Sit to lyin Lying to sitting on side of be: 6 Sit to stand: 5 Chair/zei-oj-xehul transfer: 5 Walk 10 feet: 5 Walk 50 feet with two turns: 5 Walk 150 feet: 5 PT Wrap Yarn Sorter Goals Wrap Yarn Sorter Goals PT Alf Goals Time Frame: Oct 29, 2021 Roll Left & Right (QC): 6 Sit to Lying (QC): 6 Lying-Sitting on Side/Bed(QC): 6 Sit to Stand (QC): 6 Chair/Xer-lu-Smnwo Xfer(QC): 6 Toilet Transfer (QC): 6 Car Transfer (QC): 6 Does the Patient Walk: Yes Walk 10 feet (QC): 6 Walk 50ft with 2 Turns (QC): 6 Walk 150 ft (QC): 6 Walking 10ft on Uneven Surface: 6 1 Step (curb) (QC): 5 4 Steps (QC): 5 12 Steps (QC): 5 Picking up an Object (QC): 6 Wheel 50 feet with 2 turns (QC: 9 Wheel 150 feet: 9 PT Plan Problem List Problem List: Activity Tolerance, Functional Strength, Safety, Balance, Gait, Transfer, Bed Mobility, ROM Treatment/Plan Treatment Plan: Continue Plan of Care Treatment Plan: Bed Mobility, Education, Functional Activity Lety, Functional Strength, Group Therapy, Gait, Safety, Therapeutic Exercise, Transfers Treatment Duration: Oct 29, 2021 Frequency: At least 5 of 7 days/Wk (IRF) Estimated Hrs Per Day: 1.5 hours per day Patient and/or Family Agrees t: Yes Safety Risks/Education Patient Education: Gait Training, Transfer Techniques, Reviewed Precautions, Correct Positioning, Safety Issues Teaching Recipient: Patient Teaching Methods: Demonstration, Discussion Response to Teaching: Reinforcement Needed Time/GCodes Time In: 0900 Time Out: 1000 Total Billed Treatment Time: 60 Total Billed Treatment 1 visit EX 25' FA 35' DEAN HARTMAN PT Oct 12, 2021 10:03
[2021-10-12 10:45] LABS: BASOPHILS # (AUTO) 0.1 10^3/uL (0.0-0.1); BASOPHILS % (AUTO) 1 % (0-10); EOSINOPHILS # (AUTO) 0.3 10^3/uL (0.0-0.3); EOSINOPHILS % (AUTO) 2 % (0-10); HEMATOCRIT 34 % (40-54); LYMPHOCYTES % (AUTO) 15 % (12-44); MEAN CORPUSCULAR HEMOGLOBIN 30 pg (25-34); MEAN CORPUSCULAR HGB CONC 32 g/dL (32-36); MEAN CORPUSCULAR VOLUME 91 fL (80-99); MEAN PLATELET VOLUME 8.4 fL (9.0-12.2); MONOCYTES % (AUTO) 8 % (0-12); NEUTROPHILS # (AUTO) 9.4 10^3/uL (1.8-7.8); NEUTROPHILS % (AUTO) 71 % (42-75); PLATELET COUNT 682 10^3/uL (130-400); WHITE BLOOD COUNT 13.1 10^3/uL (4.3-11.0)
[2021-10-12 11:02] LABS: ALBUMIN 3.4 GM/DL (3.2-4.5); BILIRUBIN,TOTAL 0.6 MG/DL (0.1-1.0); CALCIUM 8.9 MG/DL (8.5-10.1); CREATININE SERUM 0.81 MG/DL (0.60-1.30); TOTAL PROTEIN 7.2 GM/DL (6.4-8.2)
--- NOTE | 2021-10-12 11:18 | Physical Therapy Daily Note ---
PT Daily Note-Current Subjective Patient in recliner pre tx, agrees to PT, has unrated back pain. Appearance Patient in recliner post tx with nurse call, phone, tray, all needs met. Mental Status Patient Orientation: Person, Place, Situation cervical collar and TLSO Transfers SCALE: Activities may be completed with or without assistive devices. 2-Gkizypyvyb-nrlsivz completes the activity by him/herself with no assistance from a helper. 5-Set-up or Clean-up Assistance-helper sets up or cleans up; patient completes activity. [place] assists only prior to or following the activity. 4-Supervision or Touching Assistance-helper provides verbal cues and/or touching/steadying and/or contact guard assistance as patient completes activity. Assistance may be provided throughout the activity or intermittently. 3-Partial/Moderate Assistance-helper does LESS THAN HALF the effort. [place] lif ts, holds or supports trunk or limbs, but provides less than half the effort. 2-Substantial/Maximal Assistance-helper does MORE THAN HALF the effort. [place] lifts or holds trunk or limbs and provides more than half the effort. 4-Hywaxjmvb-bcszct does ALL the effort. Patient does none of the effort to complete the activity. Or, the assistance of 2 or more helpers is required for the patient to complete the activity. If activity was not attempted, code reason: 7-Patient Refused. 9-Not Applicable-not attempted and the patient did not perform the activity before the current illness, exacerbation or injury. 10-Not Attempted due to Environmental Limitations-(lack of equipment, weather restraints, etc.). 88-Not Attempted due to Medical Conditions or Safety Concerns. Sit to Stand (QC): 6 Chair/Irt-rh-Bspld Xfer(QC): 6 Weight Bearing TLSO on when out of bed, lifting restriction of 15#, no bending or twisting, hard cervical collar on when out of bed, soft collar on when in bed or when eating, boot on when out of bed and he can be WBAT when he has his boot on. Gait Training Distance: 1000' Walk 10 feet (QC): 6 Walk 50 ft with 2 Turns(QC): 6 Walk 150 ft (QC): 6 Gait Assistive Device: FWW slow but steady ambulation, patient ambulates over sidewalk in outdoor courtyard area. Treatments ambulation and transfers Assessment Current Status: Fair Progress Patient will now be independent in his room, will notify nurse. PT Short Term Goals Short Term Goals Time Frame: Oct 15, 2021 Roll Left & Right: 6 Sit to lyin Lying to sitting on side of be: 6 Sit to stand: 5 Chair/qrt-tt-wctmj transfer: 5 Walk 10 feet: 5 Walk 50 feet with two turns: 5 Walk 150 feet: 5 PT Long-Term Goals Special Delivery Clerk Goals PT Long-Term Goals Time Frame: Oct 29, 2021 Roll Left & Right (QC): 6 Sit to Lying (QC): 6 Lying-Sitting on Side/Bed(QC): 6 Sit to Stand (QC): 6 Chair/Aoc-rh-Ijlzg Xfer(QC): 6 Toilet Transfer (QC): 6 Car Transfer (QC): 6 Does the Patient Walk: Yes Walk 10 feet (QC): 6 Walk 50ft with 2 Turns (QC): 6 Walk 150 ft (QC): 6 Walking 10ft on Uneven Surface: 6 1 Step (curb) (QC): 5 4 Steps (QC): 5 12 Steps (QC): 5 Picking up an Object (QC): 6 Wheel 50 feet with 2 turns (QC: 9 Wheel 150 feet: 9 PT Plan Problem List Problem List: Activity Tolerance, Functional Strength, Safety, Balance, Gait, Transfer, ROM Treatment/Plan Treatment Plan: Continue Plan of Care Treatment Plan: Bed Mobility, Education, Functional Activity Lety, Functional Strength, Group Therapy, Gait, Safety, Therapeutic Exercise, Transfers Treatment Duration: Oct 29, 2021 Frequency: At least 5 of 7 days/Wk (IRF) Estimated Hrs Per Day: 1.5 hours per day Patient and/or Family Agrees t: Yes Safety Risks/Education Patient Education: Gait Training, Transfer Techniques, Correct Positioning, Safety Issues Teaching Recipient: Patient Teaching Methods: Demonstration, Discussion Response to Teaching: Reinforcement Needed Time/GCodes Time In: 1050 Time Out: 1120 Total Billed Treatment Time: 30 Total Billed Treatment 1 visit GT 30' DEAN HARTMAN PT Oct 12, 2021 11:18
--- NOTE | 2021-10-12 11:58 | Occupational Ther Daily Note ---
OT Current Status-Daily Note Subjective Pt in recliner. Pt agreeable to OT tx. Mental Status/Objective Patient Orientation: Person, Place, Time, Situation ADL-Treatment Therapy Code Descriptions/Definitions Functional [place] Measure: 0=Not Assessed/NA 4=Minimal Assistance 1=Total Assistance 5=Supervision or Setup 2=Maximal Assistance 6=Modified [place] 3=Moderate Assistance 7=Complete IndependenceSCALE: Activities may be completed with or without assistive devices. 0-Ruvgtxdhqw-kyyuqph completes the activity by him/herself with no assistance from a helper. 5-Set-up or Clean-up Assistance-helper sets up or cleans up; patient completes activity. [place] assists only prior to or following the activity. 4-Supervision or Touching Assistance-helper provides verbal cues and/or touching/steadying and/or contact guard assistance as patient completes activity. Assistance may be provided throughout the activity or intermittently. 3-Partial/Moderate Assistance-helper does LESS THAN HALF the effort. [place] lifts, holds or supports trunk or limbs, but provides less than half the effort. 2-Substantial/Maximal Assistance-helper does MORE THAN HALF the effort. [place] lifts or holds trunk or limbs and provides more than half the effort. 7-Vyqvfbihy-alzuhs does ALL the effort. Patient does none of the effort to complete the activity. Or, the assistance of 2 or more helpers is required for the patient to complete the activity. If activity was not attempted, code reason: 7-Patient Refused. 9-Not Applicable-not attempted and the patient did not perform the activity before the current illness, exacerbation or injury. 10-Not Attempted due to Environmental Limitations-(lack of equipment, weather restraints, etc.). 88-Not Attempted due to Medical Conditions or Safety Concerns. Other Treatment Pt in recliner. Pt transitioned to bathroom, FWW, SBA. Pt sat in chair at sink and completed shaving, soft neck brace donned. Pt transitioned to FWW, SBA, functional mobility to therapy gym. Pt completed 10 reps of the following BUE exercises, 1 lb weights: shoulder flexion, shoulder abduction. Pt completed 10 reps of the following BUE exercise using 2 lb weights: elbow flexion/extension. Pt completed 10 reps of the following BUE exercises: front punches, wrist flexion/extension and finger flexion/extension. Pt transitioned back to bed in room, FWW, SBA. Pt doffed back brace and CAM boot, mod A needed to unstrap/doff CAM boot completely. Pt educated on how to doff CAM boot without getting the velcro pieces stuck together. Pt sitting in bed, soft neck brace on, call light in reach and all needs met. Education OT Patient Education: Correct positioning, Energy conservation, Exercise program, Instructions don/doff splint/brace Teaching Recipient: Patient Teaching Methods: Demonstration, Discussion Response to Teaching: Verbalize Understanding, Return Demonstration OT Short Term Goals Short Term Goals Time Frame: Oct 16, 2021 Shower/bathe self: 4 Lower body dressin Putting on/taking off footwear: 4 OT Utilization Review Rn Goals Utilization Review Rn Goals Time Frame: Oct 30, 2021 Eating (QC): 6 Oral Hygiene (QC): 6 Toileting Hygiene (QC): 6 Shower/Bathe Self (QC): 6 Upper Body Dressing (QC): 6 Lower Body Dressing (QC): 6 On/Off Footwear (QC): 6 Additional Goals: 1-Demonstrate ADL Tasks, 2-Verbalize Understanding, 3- ImproveStrength/Lety 1=Demonstrate adherence to instructed precautions during ADL tasks. 2=Patient will verbalize/demonstrate understanding of assistive devices/modifications for ADL. 3=Patient will improve strength/tolerance for activity to enable patient to perform ADL's. OT Education/Plan Problem List/Assessment Assessment: Decreased Activ Tolerance, Decreased UE Strength, Impaired Funct Balance, Impaired I ADL's, Impaired Self-Care Skills Discharge Recommendations Plan/Recommendations: Continue POC Treatment Plan/Plan of Care Patient would benefit from OT for education, treatment and training to promote independence in ADL's, mobility, safety and/or upper extremity function for ADL's. Plan of Care: ADL Retraining, Functional Mobility, Group Exercise/Act as Ind, UE Funct Exercise/Act Treatment Duration: Oct 30, 2021 Frequency: At least 5 of 7 days/Wk (IRF) Estimated Hrs Per Day: 1.5 hours per day Rehab Potential: Fair Time/GCodes Start Time: 11:20 Stop Time: 11:50 Total Time Billed (hr/min): 30 Billed Treatment Time 1, ADL (10), FA (20) JENNA BUSTOS OT Oct 12, 2021 11:58
[2021-10-12 19:56] VITALS: BP 118/73
[2021-10-13] MEDS: oxyCODONE/APAP 7.5-325 MG (PERCOCET 7.5) TABLET PO PRN ×4 (01:00→22:12)
--- NOTE | 2021-10-13 06:51 | PM&R Progress Note ---
Subjective HPI/CC On Admission Date Seen by Provider: Oct 13, 2021 Time Seen by Provider: 09:00 Subjective/Events-last exam 10/13/2021: Pt doing pretty well Discharge on Tuesday Left neck pain noted Valium was given for the muscle relaxant component Bowels moved on 10/12 Later in the day incision was noted to have some drainage so Dr. Bates was contacted on-call for Dr. Royal and recommended doxycycline after wound culture taken 10/12/2021: Pt is doing about the same Working out on the stationary bike Dyspnea noted Checking labs since they were abnormal when he first came in Nicotine patch maintained 10/11/2021: Supportive care continues Up in a chair today Pain is well controlled Nicotine patch maintained 10/10/2021: Patient doing well No pain is reported except for usual injury pain Nicotine patch maintain for smoking cessation Girlfriend at the bedside Talked about an alert system at home Review of Systems General: Fatigue, Malaise Musculoskeletal: neck pain Objective Exam Vital Signs Vital Signs Date Time Temp Pulse Resp B/P (MAP) Pulse Ox O2 Delivery O2 Flow Rate FiO2 10/13/21 21:00 Room Air 10/13/21 20:00 36.4 101 18 126/74 (91) 96 Capillary Refill : General Appearance: No Apparent Distress, WD/WN, Chronically ill HEENT: PERRL/EOMI, Normal ENT Inspection, Pharynx Normal Neck: Full Range of Motion, Normal Inspection, Non Tender, Supple, Carotid Br uit Respiratory: Chest Non Tender, Lungs Clear, Normal Breath Sounds, No Accessory Muscle Use, No Respiratory Distress Cardiovascular: Regular Rate, Rhythm, No Edema, No Gallop, No JVD, No Murmur, Normal Peripheral Pulses Gastrointestinal: Normal Bowel Sounds, No Organomegaly, No Pulsatile Mass, Non Tender, Soft Back: Normal Inspection, No CVA Tenderness, No Vertebral Tenderness Extremity: Normal Capillary Refill, Normal Inspection, Normal Range of Motion, Non Tender, No Calf Tenderness, No Pedal Edema Neurologic/Psychiatric: Alert, Oriented x3, Abnormal Gait, Depressed Affect, Motor Weakness Skin: Normal Color, Warm/Dry Lymphatic: No Adenopathy Results/Procedures Lab Patient resulted labs reviewed. FIM Transfers Therapy Code Descriptions/Definitions Functional [place] Measure: 0=Not Assessed/NA 4=Minimal Assistance 1=Total Assistance 5=Supervision or Setup 2=Maximal Assistance 6=Modified [place] 3=Moderate Assistance 7=Complete IndependenceSCALE: Activities may be completed with or without assistive devices. 9-Wrvpragugd-eqqztji completes the activity by him/herself with no assistance from a helper. 5-Set-up or Clean-up Assistance-helper sets up or cleans up; patient completes activity. [place] assists only prior to or following the activity. 4-Supervision or Touching Assistance-helper provides verbal cues and/or touching/steadying and/or contact guard assistance as patient completes activity. Assistance may be provided throughout the activity or intermittently. 3-Partial/Moderate Assistance-helper does LESS THAN HALF the effort. [place] lifts, holds or supports trunk or limbs, but provides less than half the effort. 2-Substantial/Maximal Assistance-helper does MORE THAN HALF the effort. [place] lifts or holds trunk or limbs and provides more than half the effort. 9-Sxmwjorzd-ycwznt does ALL the effort. Patient does none of the effort to complete the activity. Or, the assistance of 2 or more helpers is required for the patient to complete the activity. If activity was not attempted, code reason: 7-Patient Refused. 9-Not Applicable-not attempted and the patient did not perform the activity before the current illness, exacerbation or injury. 10-Not Attempted due to Environmental Limitations-(lack of equipment, weather restraints, etc.). 88-Not Attempted due to Medical Conditions or Safety Concerns. Roll Left to Right (QC): 5 Sit to Lying (QC): 5 Sit to Stand (QC): 6 Chair/Ewh-ka-Qkfdq Xfer(QC): 6 Car Transfer (QC): 4 Gait Training Does the Patient Walk?: Yes Distance: 1000' Walk 10 feet (QC): 6 Walk 50 ft with 2 Turns(QC): 6 Walk 150 ft (QC): 6 Walking 10ft/uneven surface-QC: 4 Gait Persons Needed: 1 Gait Assistive Device: FWW Wheelchair Training Does the Pt Use a Wheelchair?: No Wheel 50 ft with 2 turns (QC): 9 Wheel 150 ft (QC): 9 Stair Training 1 Step (curb) (QC): 4 4 Steps (QC): 4 12 Steps (QC): 88 Balance Picking up an Object (QC): 4 (CGA using a grievance coordinator) ADL-Treatment Eating (QC): 6 (Per pt report) Oral Hygiene (QC): 6 (IND with oral care, pt does not complete prior but able to use mouthwash independently.) Bathing Location: L Arm, R Arm, L Upper Leg, R Upper Leg, L Lower Leg (including foot), R Lower Leg (including foot), Chest, Abdomen, Buttocks, Perineal Area Shower/Bathe Self (QC): 5 (setup/cleanup) Upper Body Dressing (QC): 3 (assistance needed to reach straps of back brace when donning) Lower Body Dressing (QC): 5 (setup) On/Off Footwear (QC): 3 (assistance needed to unstrap/strap CAM boot) Toileting Hygiene (QC): 6 (independent) Toilet Transfer (QC): 4 (SBA) Assessment/Plan Assessment and Plan Assess & Plan/Chief Complaint Assessment: s/p T10-L4 Fusion Smoker Leukocytosis Anemia acute blood loss Thrombocytosis TBI hx ADHD Incision and drainage 10/13/2021 Plan: Nicotine patch Monitor wbc Add PCT to labs 10/10/2021: Supportive care Incentive spirometer Nicotine patch 10/11/2021: Supportive care Discharge when stable 10/12/2021: Pain control Monitor closely 10/13/2021: Incision management with drainage (1) Trauma (2) Anemia ENEDINA MEIER DO Oct 13, 2021 06:51
[2021-10-13] MEDS: polyethylene glycoL POWDER 17 GM (MIRALAX) PACK PO SCH ×2 (07:31→23:10)
[2021-10-13] MEDS: ENOXAPARIN 40 MG/0.4 ML (LOVENOX) SYR SC SCH (07:31)
[2021-10-13] MEDS: NICOTINE PATCH REMOVAL TP SCH (07:31)
[2021-10-13] MEDS: NICOTINE 21 MG (NICODERM) PATCH TD SCH (07:31)
[2021-10-13] MEDS: DOCUSATE SODIUM 100 MG (COLACE) CAP PO SCH ×2 (07:31→23:10)
[2021-10-13] MEDS: SENNA W/DOCUSATE (SENOKOT S) TABLET PO SCH ×2 (07:31→23:10)
[2021-10-13] MEDS: BACITRACIN OINTMENT 28 GM TUBE TP SCH (07:32)
[2021-10-13] MEDS: DIAZEPAM 5 MG (VALIUM) TABLET PO PRN ×2 (07:35→14:00)
[2021-10-13 07:58] VITALS: BP 98/64
--- NOTE | 2021-10-13 08:39 | Occupational Ther Daily Note ---
OT Current Status-Daily Note Subjective Pt supine in bed. Pt states he has some left shoulder pain. Pt agreeable to OT tx. Mental Status/Objective Patient Orientation: Person, Place, Situation ADL-Treatment Therapy Code Descriptions/Definitions Functional [place] Measure: 0=Not Assessed/NA 4=Minimal Assistance 1=Total Assistance 5=Supervision or Setup 2=Maximal Assistance 6=Modified [place] 3=Moderate Assistance 7=Complete IndependenceSCALE: Activities may be completed with or without assistive devices. 1-Psjbcobyqr-trpubpw completes the activity by him/herself with no assistance from a helper. 5-Set-up or Clean-up Assistance-helper sets up or cleans up; patient completes activity. [place] assists only prior to or following the activity. 4-Supervision or Touching Assistance-helper provides verbal cues and/or touching/steadying and/or contact guard assistance as patient completes activity. Assistance may be provided throughout the activity or intermittently. 3-Partial/Moderate Assistance-helper does LESS THAN HALF the effort. [place] lifts, holds or supports trunk or limbs, but provides less than half the effort. 2-Substantial/Maximal Assistance-helper does MORE THAN HALF the effort. [place] lifts or holds trunk or limbs and provides more than half the effort. 2-Lgwfdblmv-wxhnfi does ALL the effort. Patient does none of the effort to complete the activity. Or, the assistance of 2 or more helpers is required for the patient to complete the activity. If activity was not attempted, code reason: 7-Patient Refused. 9-Not Applicable-not attempted and the patient did not perform the activity before the current illness, exacerbation or injury. 10-Not Attempted due to Environmental Limitations-(lack of equipment, weather restraints, etc.). 88-Not Attempted due to Medical Conditions or Safety Concerns. On/Off Footwear: 4 (SBA for min cues to don CAM boot) Other Treatment Pt supine in bed. Pt sat EOB independently. Pt donned neck brace, back brace and CAM boot, min A needed to reach straps of back brace, SBA for min cues to don CAM boot. Pt transitioned to FWW, SBA, functional mobility to therapy gym. Pt completed pegboard x100 pegs to work on activity tolerance and strengthening, BUE,1 lb weights on both wrist. Pt completed mod-hard pipe tree puzzles x2 to work on problem solving, activity tolerance and strengthening, 1 lb weights on both wrists, no errors. Pt transitioned back to room, FWW, SBA. Pt in recliner, call light in reach and all needs met. Education OT Patient Education: Correct positioning, Energy conservation, Modified ADL techniques, Progress toward Goal/Update tx plan, Purpose of tx/functional activities, Reviewed precautions, Rehab process Teaching Recipient: Patient Teaching Methods: Discussion Response to Teaching: Verbalize Understanding OT Short Term Goals Short Term Goals Time Frame: Oct 16, 2021 Shower/bathe self: 4 Lower body dressin Putting on/taking off footwear: 4 OT Intermediate Goals Intermediate Goals Time Frame: Oct 30, 2021 Eating (QC): 6 Oral Hygiene (QC): 6 Toileting Hygiene (QC): 6 Shower/Bathe Self (QC): 6 Upper Body Dressing (QC): 6 Lower Body Dressing (QC): 6 On/Off Footwear (QC): 6 Additional Goals: 1-Demonstrate ADL Tasks, 2-Verbalize Understanding, 3- ImproveStrength/Lety 1=Demonstrate adherence to instructed precautions during ADL tasks. 2=Patient will verbalize/demonstrate understanding of assistive devices/modifications for ADL. 3=Patient will improve strength/tolerance for activity to enable patient to perform ADL's. OT Education/Plan Problem List/Assessment Assessment: Decreased Activ Tolerance, Decreased UE Strength, Impaired Funct Balance, Impaired I ADL's, Impaired Self-Care Skills Discharge Recommendations Plan/Recommendations: Continue POC Treatment Plan/Plan of Care Patient would benefit from OT for education, treatment and training to promote independence in ADL's, mobility, safety and/or upper extremity function for ADL's. Plan of Care: ADL Retraining, Functional Mobility, Group Exercise/Act as Ind, UE Funct Exercise/Act Treatment Duration: Oct 30, 2021 Frequency: At least 5 of 7 days/Wk (IRF) Estimated Hrs Per Day: 1.5 hours per day Rehab Potential: Fair Time/GCodes Start Time: 08:00 Stop Time: 09:00 Total Time Billed (hr/min): 60 Billed Treatment Time 1, FA 4 (60) JENNA BUSTOS OT Oct 13, 2021 08:39
--- NOTE | 2021-10-13 09:53 | Physical Therapy Daily Note ---
PT Daily Note-Current Subjective Patient in recliner pre tx, agrees to PT, has unrated pain in neck and back, when asked what his pain level is he says "oh im ok". Appearance Patient in room post tx, he is now independent in his room. Mental Status Patient Orientation: Person, Place, Situation cervical collar, TLSO, cam boot Transfers SCALE: Activities may be completed with or without assistive devices. 8-Qclberzghg-etywayx completes the activity by him/herself with no assistance from a helper. 5-Set-up or Clean-up Assistance-helper sets up or cleans up; patient completes activity. [place] assists only prior to or following the activity. 4-Supervision or Touching Assistance-helper provides verbal cues and/or touching/steadying and/or contact guard assistance as patient completes activity. Assistance may be provided throughout the activity or intermittently. 3-Partial/Moderate Assistance-helper does LESS THAN HALF the effort. [place] lifts, holds or supports trunk or limbs, but provides less than half the effort. 2-Substantial/Maximal Assistance-helper does MORE THAN HALF the effort. [place] lifts or holds trunk or limbs and provides more than half the effort. 0-Otoxbvhnt-zilbeh does ALL the effort. Patient does none of the effort to complete the activity. Or, the assistance of 2 or more helpers is required for the patient to complete the activity. If activity was not attempted, code reason: 7-Patient Refused. 9-Not Applicable-not attempted and the patient did not perform the activity before the current illness, exacerbation or injury. 10-Not Attempted due to Environmental Limitations-(lack of equipment, weather restraints, etc.). 88-Not Attempted due to Medical Conditions or Safety Concerns. Sit to Stand (QC): 6 Chair/Sfg-oi-Uqvlm Xfer(QC): 6 Weight Bearing TLSO on when out of bed, lifting restriction of 15#, no bending or twisting, hard cervical collar on when out of bed, soft collar on when in bed or when eating, boot on when out of bed and he can be WBAT when he has his boot on. Gait Training Distance: 800', 150' Walk 10 feet (QC): 6 Walk 50 ft with 2 Turns(QC): 6 Walk 150 ft (QC): 6 Gait Assistive Device: FWW slow but steady ambulation Exercises Standing: Hip Abduction, Hamstring curls, Marching, Mini squats Standing Reps: 15 NuStep Minutes: 15 NuStep Workload: 4 (LE only) Treatments transfers, ambulation, LE strengthening Assessment Current Status: Fair Progress improving endurance PT Short Term Goals Short Term Goals Time Frame: Oct 15, 2021 Roll Left & Right: 6 Sit to lyin Lying to sitting on side of be: 6 Sit to stand: 5 Chair/eff-go-dieiy transfer: 5 Walk 10 feet: 5 Walk 50 feet with two turns: 5 Walk 150 feet: 5 PT Chcf Goals Hydrologic Engineer Goals PT Hydrologic Engineer Goals Time Frame: Oct 29, 2021 Roll Left & Right (QC): 6 Sit to Lying (QC): 6 Lying-Sitting on Side/Bed(QC): 6 Sit to Stand (QC): 6 Chair/Dox-aq-Rlniy Xfer(QC): 6 Toilet Transfer (QC): 6 Car Transfer (QC): 6 Does the Patient Walk: Yes Walk 10 feet (QC): 6 Walk 50ft with 2 Turns (QC): 6 Walk 150 ft (QC): 6 Walking 10ft on Uneven Surface: 6 1 Step (curb) (QC): 5 4 Steps (QC): 5 12 Steps (QC): 5 Picking up an Object (QC): 6 Wheel 50 feet with 2 turns (QC: 9 Wheel 150 feet: 9 PT Plan Problem List Problem List: Activity Tolerance, Functional Strength, Safety, Balance, Gait, Transfer, ROM Treatment/Plan Treatment Plan: Continue Plan of Care Treatment Plan: Bed Mobility, Education, Functional Activity Lety, Functional Strength, Group Therapy, Gait, Safety, Therapeutic Exercise, Transfers Treatment Duration: Oct 29, 2021 Frequency: At least 5 of 7 days/Wk (IRF) Estimated Hrs Per Day: 1.5 hours per day Patient and/or Family Agrees t: Yes Safety Risks/Education Patient Education: Gait Training, Transfer Techniques, Reviewed Precautions, Correct Positioning, Safety Issues Teaching Recipient: Patient Teaching Methods: Demonstration, Discussion Response to Teaching: Reinforcement Needed Time/GCodes Time In: 0900 Time Out: 1000 Total Billed Treatment Time: 60 Total Billed Treatment 1 visit EX 25' GT 35' DEAN HARTMAN PT Oct 13, 2021 09:53
--- NOTE | 2021-10-13 11:48 | Occupational Ther Daily Note ---
OT Current Status-Daily Note Subjective Pt supine in bed. Pt agreeable to OT tx. Mental Status/Objective Patient Orientation: Person, Place, Time, Situation ADL-Treatment Therapy Code Descriptions/Definitions Functional [place] Measure: 0=Not Assessed/NA 4=Minimal Assistance 1=Total Assistance 5=Supervision or Setup 2=Maximal Assistance 6=Modified [place] 3=Moderate Assistance 7=Complete IndependenceSCALE: Activities may be completed with or without assistive devices. 3-Ytbfaqlsrp-carwnhr completes the activity by him/herself with no assistance from a helper. 5-Set-up or Clean-up Assistance-helper sets up or cleans up; patient completes activity. [place] assists only prior to or following the activity. 4-Supervision or Touching Assistance-helper provides verbal cues and/or touching/steadying and/or contact guard assistance as patient completes activity. Assistance may be provided throughout the activity or intermittently. 3-Partial/Moderate Assistance-helper does LESS THAN HALF the effort. [place] lifts, holds or supports trunk or limbs, but provides less than half the effort. 2-Substantial/Maximal Assistance-helper does MORE THAN HALF the effort. [place] lifts or holds trunk or limbs and provides more than half the effort. 5-Qhyrwemsu-kyokoj does ALL the effort. Patient does none of the effort to complete the activity. Or, the assistance of 2 or more helpers is required for the patient to complete the activity. If activity was not attempted, code reason: 7-Patient Refused. 9-Not Applicable-not attempted and the patient did not perform the activity before the current illness, exacerbation or injury. 10-Not Attempted due to Environmental Limitations-(lack of equipment, weather restraints, etc.). 88-Not Attempted due to Medical Conditions or Safety Concerns. Other Treatment Pt supine in bed. Pt transitioned EOB independently. Pt donned back brace, shoe and CAM boot, min A needed to thread bottom strap of CAM boot, min A needed to reach straps/untangle straps of back brace. Pt transitioned to FWW, SBA, functional mobility to therapy gym. Pt removed beads from mod-hard theraputty to work on fine motor skills and hand strengthening, able to locate all beads without cues. Pt transitioned to FWW, functional mobility back to room. Pt doffed shoe, CAM boot and back brace independently. Pt supine in bed, call light in reach and all needs met. Education OT Patient Education: Correct positioning, Energy conservation, Modified ADL techniques, Progress toward Goal/Update tx plan, Purpose of tx/functional activities, Rehab process Teaching Recipient: Patient Teaching Methods: Discussion Response to Teaching: Verbalize Understanding OT Short Term Goals Short Term Goals Time Frame: Oct 16, 2021 Shower/bathe self: 4 Lower body dressin Putting on/taking off footwear: 4 OT Group Home Goals Group Home Goals Time Frame: Oct 30, 2021 Eating (QC): 6 Oral Hygiene (QC): 6 Toileting Hygiene (QC): 6 Shower/Bathe Self (QC): 6 Upper Body Dressing (QC): 6 Lower Body Dressing (QC): 6 On/Off Footwear (QC): 6 Additional Goals: 1-Demonstrate ADL Tasks, 2-Verbalize Understanding, 3- ImproveStrength/Lety 1=Demonstrate adherence to instructed precautions during ADL tasks. 2=Patient will verbalize/demonstrate understanding of assistive devices/modifications for ADL. 3=Patient will improve strength/tolerance for activity to enable patient to perform ADL's. OT Education/Plan Problem List/Assessment Assessment: Decreased Activ Tolerance, Decreased UE Strength, Impaired Funct Balance, Impaired I ADL's, Impaired Self-Care Skills Discharge Recommendations Plan/Recommendations: Continue POC Treatment Plan/Plan of Care Patient would benefit from OT for education, treatment and training to promote independence in ADL's, mobility, safety and/or upper extremity function for ADL's. Plan of Care: ADL Retraining, Functional Mobility, Group Exercise/Act as Ind, UE Funct Exercise/Act Treatment Duration: Oct 30, 2021 Frequency: At least 5 of 7 days/Wk (IRF) Estimated Hrs Per Day: 1.5 hours per day Rehab Potential: Fair Time/GCodes Start Time: 11:15 Stop Time: 11:45 Total Time Billed (hr/min): 30 Billed Treatment Time 1, FA 2 (30) JENNA BUSTOS OT Oct 13, 2021 11:48
--- NOTE | 2021-10-13 13:26 | Physical Therapy Daily Note ---
PT Daily Note-Current Subjective Patient in bed pre tx, agrees to PT, has unrated back pain. Appearance Patient sitting EOB post tx with nurse call, phone, tray, all needs met. Mental Status Patient Orientation: Normal For Age cam boot, TLSO, cervical collar Transfers SCALE: Activities may be completed with or without assistive devices. 4-Obxgdwqqgp-glghruz completes the activity by him/herself with no assistance from a helper. 5-Set-up or Clean-up Assistance-helper sets up or cleans up; patient completes activity. [place] assists only prior to or following the activity. 4-Supervision or Touching Assistance-helper provides verbal cues and/or touching/steadying and/or contact guard assistance as patient completes activity. Assistance may be provided throughout the activity or intermittently. 3-Partial/Moderate Assistance-helper does LESS THAN HALF the effort. [place] lifts, holds or supports trunk or limbs, but provides less than half the effort. 2-Substantial/Maximal Assistance-helper does MORE THAN HALF the effort. [place] lifts or holds trunk or limbs and provides more than half the effort. 6-Qjfesvdbx-mxmuoh does ALL the effort. Patient does none of the effort to complete the activity. Or, the assistance of 2 or more helpers is required for the patient to complete the activity. If activity was not attempted, code reason: 7-Patient Refused. 9-Not Applicable-not attempted and the patient did not perform the activity before the current illness, exacerbation or injury. 10-Not Attempted due to Environmental Limitations-(lack of equipment, weather restraints, etc.). 88-Not Attempted due to Medical Conditions or Safety Concerns. Roll Left & Right (QC): 6 Lying to Sitting/Side of Bed(Q: 6 Sit to Stand (QC): 6 Chair/Bum-km-Rcekn Xfer(QC): 6 Weight Bearing TLSO on when out of bed, lifting restriction of 15#, no bending or twisting, hard cervical collar on when out of bed, soft collar on when in bed or when eating, boot on when out of bed and he can be WBAT when he has his boot on. Gait Training Distance: 800' Walk 10 feet (QC): 6 Walk 150 ft (QC): 6 Gait Assistive Device: FWW one short standing rest break, patient ambulates slow but steady Treatments bed mobility and transfers, ambulation Assessment Current Status: Fair Progress improving endurance PT Short Term Goals Short Term Goals Time Frame: Oct 15, 2021 Roll Left & Right: 6 Sit to lyin Lying to sitting on side of be: 6 Sit to stand: 5 Chair/ybf-kz-ctdfy transfer: 5 Walk 10 feet: 5 Walk 50 feet with two turns: 5 Walk 150 feet: 5 PT Detention Goals Detention Goals PT Detention Goals Time Frame: Oct 29, 2021 Roll Left & Right (QC): 6 Sit to Lying (QC): 6 Lying-Sitting on Side/Bed(QC): 6 Sit to Stand (QC): 6 Chair/Rtu-mk-Ypzim Xfer(QC): 6 Toilet Transfer (QC): 6 Car Transfer (QC): 6 Does the Patient Walk: Yes Walk 10 feet (QC): 6 Walk 50ft with 2 Turns (QC): 6 Walk 150 ft (QC): 6 Walking 10ft on Uneven Surface: 6 1 Step (curb) (QC): 5 4 Steps (QC): 5 12 Steps (QC): 5 Picking up an Object (QC): 6 Wheel 50 feet with 2 turns (QC: 9 Wheel 150 feet: 9 PT Plan Problem List Problem List: Activity Tolerance, Functional Strength, Safety, Balance, Gait, Transfer, ROM Treatment/Plan Treatment Plan: Continue Plan of Care Treatment Plan: Bed Mobility, Education, Functional Activity Lety, Functional Strength, Group Therapy, Gait, Safety, Therapeutic Exercise, Transfers Treatment Duration: Oct 29, 2021 Frequency: At least 5 of 7 days/Wk (IRF) Estimated Hrs Per Day: 1.5 hours per day Patient and/or Family Agrees t: Yes Safety Risks/Education Patient Education: Gait Training, Transfer Techniques, Correct Positioning, Safety Issues Teaching Recipient: Patient Teaching Methods: Demonstration, Discussion Response to Teaching: Reinforcement Needed Time/GCodes Time In: 1255 Time Out: 1325 Total Billed Treatment Time: 30 Total Billed Treatment 1 visit FA 30' DEAN HARTMAN PT Oct 13, 2021 13:25
[2021-10-13] MEDS: DOXYCYCLINE 100 MG (VIBRAMYCIN) TABLET PO SCH (16:57)
[2021-10-13 20:00] VITALS: BP 126/74
[2021-10-13 23:06] LABS: HEPATITIS C ANTIBODY C Non-Reactive (Non-Reactive)
--- NOTE | 2021-10-14 05:58 | PM&R Progress Note ---
Subjective HPI/CC On Admission Date Seen by Provider: Oct 14, 2021 Time Seen by Provider: 09:00 Subjective/Events-last exam 10/14/2021: Pt doing about the same Drainage from the wound Remains on Doxycycline Discharge home after neurosurgery evaluates the incision Gram positive cocci on preliminary culture Patient is very angry about discharging but is CMG length of stay is Tuesday anyway so we will continue with supportive care 10/13/2021: Pt doing pretty well Discharge on Tuesday Left neck pain noted Valium was given for the muscle relaxant component Bowels moved on 10/12 Later in the day incision was noted to have some drainage so Dr. Bates was contacted on-call for Dr. Royal and recommended doxycycline after wound culture taken 10/12/2021: Pt is doing about the same Working out on the stationary bike Dyspnea noted Checking labs since they were abnormal when he first came in Nicotine patch maintained 10/11/2021: Supportive care continues Up in a chair today Pain is well controlled Nicotine patch maintained 10/10/2021: Patient doing well No pain is reported except for usual injury pain Nicotine patch maintain for smoking cessation Girlfriend at the bedside Talked about an alert system at home Review of Systems Musculoskeletal: back pain, leg pain Objective Exam Vital Signs Vital Signs Date Time Temp Pulse Resp B/P (MAP) Pulse Ox O2 Delivery O2 Flow Rate FiO2 10/14/21 21:10 Room Air 10/14/21 20:02 37.2 112 18 101/61 (74) 95 Capillary Refill : General Appearance: No Apparent Distress, WD/WN, Chronically ill HEENT: PERRL/EOMI, Normal ENT Inspection, Pharynx Normal Neck: Full Range of Motion, Normal Inspection, Non Tender, Supple, Carotid Bruit Respiratory: Chest Non Tender, Lungs Clear, Normal Breath Sounds, No Accessory Muscle Use, No Respiratory Distress Cardiovascular: Regular Rate, Rhythm, No Edema, No Gallop, No JVD, No Murmur, Normal Peripheral Pulses Gastrointestinal: Normal Bowel Sounds, No Organomegaly, No Pulsatile Mass, Non Tender, Soft Back: Normal Inspection, No CVA Tenderness, No Vertebral Tenderness Extremity: Normal Capillary Refill, Normal Inspection, Normal Range of Motion, Non Tender, No Calf Tenderness, No Pedal Edema Neurologic/Psychiatric: Alert, Oriented x3, Abnormal Gait, Depressed Affect, Motor Weakness Skin: Normal Color, Warm/Dry Lymphatic: No Adenopathy Results/Procedures Lab Patient resulted labs reviewed. FIM Transfers Therapy Code Descriptions/Definitions Functional [place] Measure: 0=Not Assessed/NA 4=Minimal Assistance 1=Total Assistance 5=Supervision or Setup 2=Maximal Assistance 6=Modified [place] 3=Moderate Assistance 7=Complete IndependenceSCALE: Activities may be completed with or without assistive devices. 4-Fkjgpbtdih-pvevdzh completes the activity by him/herself with no assistance from a helper. 5-Set-up or Clean-up Assistance-helper sets up or cleans up; patient completes activity. [place] assists only prior to or following the activity. 4-Supervision or Touching Assistance-helper provides verbal cues and/or touching/steadying and/or contact guard assistance as patient completes activity. Assistance may be provided throughout the activity or intermittently. 3-Partial/Moderate Assistance-helper does LESS THAN HALF the effort. [place] lifts, holds or supports trunk or limbs, but provides less than half the effort. 2-Substantial/Maximal Assistance-helper does MORE THAN HALF the effort. [place] lifts or holds trunk or limbs and provides more than half the effort. 3-Djiyzpoyg-tudaoh does ALL the effort. Patient does none of the effort to complete the activity. Or, the assistance of 2 or more helpers is required for the patient to complete the activity. If activity was not attempted, code reason: 7-Patient Refused. 9-Not Applicable-not attempted and the patient did not perform the activity before the current illness, exacerbation or injury. 10-Not Attempted due to Environmental Limitations-(lack of equipment, weather restraints, etc.). 88-Not Attempted due to Medical Conditions or Safety Concerns. Roll Left to Right (QC): 6 Sit to Lying (QC): 5 Sit to Stand (QC): 6 Chair/Wty-is-Xsyvp Xfer(QC): 6 Car Transfer (QC): 4 Gait Training Does the Patient Walk?: Yes Distance: 800' Walk 10 feet (QC): 6 Walk 50 ft with 2 Turns(QC): 6 Walk 150 ft (QC): 6 Walking 10ft/uneven surface-QC: 4 Gait Persons Needed: 1 Gait Assistive Device: FWW Wheelchair Training Does the Pt Use a Wheelchair?: No Wheel 50 ft with 2 turns (QC): 9 Wheel 150 ft (QC): 9 Stair Training 1 Step (curb) (QC): 4 4 Steps (QC): 4 12 Steps (QC): 88 Balance Picking up an Object (QC): 4 (CGA using a patient insurance clerk) ADL-Treatment Eating (QC): 6 (Per pt report) Oral Hygiene (QC): 6 (IND with oral care, pt does not complete prior but able to use mouthwash independently.) Bathing Location: L Arm, R Arm, L Upper Leg, R Upper Leg, L Lower Leg (including foot), R Lower Leg (including foot), Chest, Abdomen, Buttocks, Perineal Area Shower/Bathe Self (QC): 5 (setup/cleanup) Upper Body Dressing (QC): 3 (assistance needed to reach straps of back brace when donning) Lower Body Dressing (QC): 5 (setup) On/Off Footwear (QC): 4 (SBA for min cues to don CAM boot) Toileting Hygiene (QC): 6 (independent) Toilet Transfer (QC): 4 (SBA) Assessment/Plan Assessment and Plan Assess & Plan/Chief Complaint Assessment: s/p T10-L4 Fusion Smoker Leukocytosis Anemia acute blood loss Thrombocytosis TBI hx ADHD Incision and drainage 10/13/2021 Plan: Nicotine patch Monitor wbc Add PCT to labs 10/10/2021: Supportive care Incentive spirometer Nicotine patch 10/11/2021: Supportive care Discharge when stable 10/12/2021: Pain control Monitor closely 10/13/2021: Incision management with drainage 10/14/2021: Discharge home tomorrow (1) Trauma (2) Anemia ENEDINA MEIER DO Oct 14, 2021 05:58
[2021-10-14] MEDS: DOXYCYCLINE 100 MG (VIBRAMYCIN) TABLET PO SCH ×2 (06:28→17:44)
[2021-10-14 07:48] VITALS: BP 121/73
--- NOTE | 2021-10-14 09:11 | Occupational Ther Daily Note ---
OT Current Status-Daily Note Subjective Pt supine in bed. Pt seems frustrated/upset about not being able to attend the weekly team meeting and not being told when he will be discharging. Pt agreeable to OT tx. Mental Status/Objective Patient Orientation: Person, Place, Situation ADL-Treatment Therapy Code Descriptions/Definitions Functional [place] Measure: 0=Not Assessed/NA 4=Minimal Assistance 1=Total Assistance 5=Supervision or Setup 2=Maximal Assistance 6=Modified [place] 3=Moderate Assistance 7=Complete IndependenceSCALE: Activities may be completed with or without assistive devices. 6-Eoxmvnilif-paxvfcb completes the activity by him/herself with no assistance from a helper. 5-Set-up or Clean-up Assistance-helper sets up or cleans up; patient completes activity. [place] assists only prior to or following the activity. 4-Supervision or Touching Assistance-helper provides verbal cues and/or touching/steadying and/or contact guard assistance as patient completes activity. Assistance may be provided throughout the activity or intermittently. 3-Partial/Moderate Assistance-helper does LESS THAN HALF the effort. [place] lifts, holds or supports trunk or limbs, but provides less than half the effort. 2-Substantial/Maximal Assistance-helper does MORE THAN HALF the effort. [place] lifts or holds trunk or limbs and provides more than half the effort. 3-Qzntkbzah-doekgb does ALL the effort. Patient does none of the effort to complete the activity. Or, the assistance of 2 or more helpers is required for the patient to complete the activity. If activity was not attempted, code reason: 7-Patient Refused. 9-Not Applicable-not attempted and the patient did not perform the activity before the current illness, exacerbation or injury. 10-Not Attempted due to Environmental Limitations-(lack of equipment, weather restraints, etc.). 88-Not Attempted due to Medical Conditions or Safety Concerns. Eating (QC): 6 (independent ) Oral Hygiene (QC): 6 (independent ) Bathing Location: L Arm, R Arm, L Upper Leg, R Upper Leg, L Lower Leg (including foot), R Lower Leg (including foot), Chest, Abdomen, Buttocks, Perineal Area Shower/Bathe Self (QC): 5 (setup needed to cover back dressing ) Upper Body Dressing (QC): 5 (setup ) Lower Body Dressing (QC): 5 (setup) On/Off Footwear: 5 (setup ) Toileting Hygiene (QC): 6 (independent ) Toilet Transfer (QC): 6 (independent ) Other Treatment Pt supine in bed. Pt transitioned EOB, donned back brace, shoe and CAM boot, with setup. Pt transitioned to FWW, functional mobility to IN, SBA. Pt doffed shirt, pants, sock, shoe, CAM boot, back brace and neck brace, then completed showering. Pt needed verbal cue and educated on safety precautions regarding standing in shower without braces and CAM boot on. Pt donned sock, shoe, CAM boot, back brace and neck brace, set up. Pt transitioned to FWW, functional mobility to sink, completed oral hygiene then functional mobility to therapy gym. Pt placed/removed nuts/bolts to work on activity tolerance and strengthening, 1 lb weights on both wrist, no errors. Pt removed/placed beads from mod-hard theraputty to work on fine motor skills and hand strengthening, no errors. Pt transitioned back to room, FWW, SBA. Pt in recliner, call light in reach and all needs met. Education OT Patient Education: Correct positioning, Energy conservation, Modified ADL techniques, Progress toward Goal/Update tx plan, Purpose of tx/functional activities, Reviewed precautions, Rehab process Teaching Recipient: Patient Teaching Methods: Discussion Response to Teaching: Verbalize Understanding, Reinforcement Needed OT Short Term Goals Short Term Goals Time Frame: Oct 16, 2021 Shower/bathe self: 4 Lower body dressin Putting on/taking off footwear: 4 OT Fpc Goals Fpc Goals Time Frame: Oct 30, 2021 Eating (QC): 6 Oral Hygiene (QC): 6 Toileting Hygiene (QC): 6 Shower/Bathe Self (QC): 6 Upper Body Dressing (QC): 6 Lower Body Dressing (QC): 6 On/Off Footwear (QC): 6 Additional Goals: 1-Demonstrate ADL Tasks, 2-Verbalize Understanding, 3- ImproveStrength/Lety 1=Demonstrate adherence to instructed precautions during ADL tasks. 2=Patient will verbalize/demonstrate understanding of assistive devices/modifications for ADL. 3=Patient will improve strength/tolerance for activity to enable patient to perform ADL's. OT Education/Plan Problem List/Assessment Assessment: Decreased Activ Tolerance, Decreased Safety Aware, Decreased UE Strength, Impaired Funct Balance, Impaired I ADL's, Impaired Self-Care Skills Discharge Recommendations Plan/Recommendations: Continue POC Treatment Plan/Plan of Care Patient would benefit from OT for education, treatment and training to promote independence in ADL's, mobility, safety and/or upper extremity function for ADL's. Plan of Care: ADL Retraining, Functional Mobility, Group Exercise/Act as Ind, UE Funct Exercise/Act Treatment Duration: Oct 30, 2021 Frequency: At least 5 of 7 days/Wk (IRF) Estimated Hrs Per Day: 1.5 hours per day Rehab Potential: Fair Time/GCodes Start Time: 08:00 Stop Time: 09:30 Total Time Billed (hr/min): 90 Billed Treatment Time 1, ADL 4 (60), FA 2 (30) JENNA BUSTOS OT Oct 14, 2021 09:11
[2021-10-14] MEDS: polyethylene glycoL POWDER 17 GM (MIRALAX) PACK PO SCH ×2 (09:20→21:20)
[2021-10-14] MEDS: ENOXAPARIN 40 MG/0.4 ML (LOVENOX) SYR SC SCH (09:31)
[2021-10-14] MEDS: SENNA W/DOCUSATE (SENOKOT S) TABLET PO SCH ×2 (09:31→21:08)
[2021-10-14] MEDS: DIAZEPAM 5 MG (VALIUM) TABLET PO PRN ×2 (09:31→21:01)
[2021-10-14] MEDS: DOCUSATE SODIUM 100 MG (COLACE) CAP PO SCH ×2 (09:32→21:20)
[2021-10-14] MEDS: oxyCODONE/APAP 7.5-325 MG (PERCOCET 7.5) TABLET PO PRN (09:32)
[2021-10-14] MEDS: NICOTINE 21 MG (NICODERM) PATCH TD SCH (09:33)
[2021-10-14] MEDS: NICOTINE PATCH REMOVAL TP SCH (09:33)
--- NOTE | 2021-10-14 11:05 | Physical Therapy Daily Note ---
PT Daily Note-Current Subjective Pt sitting in recliner with Nursing present upon arrival. Pt agrees to PT for QC scoring for possible Dr appointment tomorrow. Pain Numeric Pain Scale: 4 Location: Left Location Body Site: Ankle Pain Description: Ache Mental Status Patient Orientation: Person, Place, Time, Situation Attachments: Other-See Comments (Cervical Collar, TLSO & CAM boot for L LE) Transfers SCALE: Activities may be completed with or without assistive devices. 4-Rpbtwoiyfr-cgxtnzn completes the activity by him/herself with no assistance from a helper. 5-Set-up or Clean-up Assistance-helper sets up or cleans up; patient completes activity. [place] assists only prior to or following the activity. 4-Supervision or Touching Assistance-helper provides verbal cues and/or touching/steadying and/or contact guard assistance as patient completes activity. Assistance may be provided throughout the activity or intermittently. 3-Partial/Moderate Assistance-helper does LESS THAN HALF the effort. [place] lifts, holds or supports trunk or limbs, but provides less than half the effort. 2-Substantial/Maximal Assistance-helper does MORE THAN HALF the effort. [place] lifts or holds trunk or limbs and provides more than half the effort. 3-Wvspwvnpw-vuyeij does ALL the effort. Patient does none of the effort to complete the activity. Or, the assistance of 2 or more helpers is required for the patient to complete the activity. If activity was not attempted, code reason: 7-Patient Refused. 9-Not Applicable-not attempted and the patient did not perform the activity before the current illness, exacerbation or injury. 10-Not Attempted due to Environmental Limitations-(lack of equipment, weather restraints, etc.). 88-Not Attempted due to Medical Conditions or Safety Concerns. Roll Left & Right (QC): 6 Sit to Lying (QC): 6 Lying to Sitting/Side of Bed(Q: 6 Sit to Stand (QC): 6 Chair/Bhg-ds-Iiusg Xfer(QC): 6 Toilet Transfer (QC): 6 Car Transfer (QC): 6 Weight Bearing Full Weight Bearing Weight Bearing/Tolerated TLSO on when out of bed, lifting restriction of 15#, no bending or twisting, hard cervical collar on when out of bed, soft collar on when in bed or when eating, boot on when out of bed and he can be WBAT when he has his boot on. Gait Training Does the Patient Walk?: Yes Distance: 500', 500', 200' Walk 10 feet (QC): 6 Walk 50 ft with 2 Turns(QC): 6 Walk 150 ft (QC): 6 Walking 10ft/uneven surface-QC: 6 Gait Persons Needed: 0 Gait Assistive Device: FWW Wheelchair Training Does the Pt Use a Wheelchair?: No Stair Training Stair Training: Handrails/: 2 handrails #of Steps: 12 1 Step (curb) (QC): 6 4 Steps (QC): 5 12 Steps (QC): 5 Stairs: Pattern: Step to Balance Picking up an Object (QC): 88 Special Test Comments Didn't test due to precautions for back. Exercises Supine Ex: Ankle pumps, Quad Set, Glut sets, Heel Slides, Short Arc Quads, Straight leg raise, Hip abd/add Supine Reps: 15 Seated Therapy Exercises: Ankle pumps, Long arc quads, Hip flexion, Glut set Seated Reps: 15 Treatments Pt completes QC scoring items listed above as well as extended walks in hallway. Pt doesn't complete picking up object from floor due to bending restriction with back. Assessment Current Status: Good Progress Pt tolerated tx well. Pt appears at times to be wobbly but pt is able to control walking and self correct as needed. PT Short Term Goals Short Term Goals Time Frame: Oct 15, 2021 Roll Left & Right: 6 Sit to lyin Lying to sitting on side of be: 6 Sit to stand: 5 Chair/pjw-sc-onwac transfer: 5 Walk 10 feet: 5 Walk 50 feet with two turns: 5 Walk 150 feet: 5 PT Fdc Goals Fdc Goals PT Fdc Goals Time Frame: Oct 29, 2021 Roll Left & Right (QC): 6 Sit to Lying (QC): 6 Lying-Sitting on Side/Bed(QC): 6 Sit to Stand (QC): 6 Chair/Rzc-ap-Argxc Xfer(QC): 6 Toilet Transfer (QC): 6 Car Transfer (QC): 6 Does the Patient Walk: Yes Walk 10 feet (QC): 6 Walk 50ft with 2 Turns (QC): 6 Walk 150 ft (QC): 6 Walking 10ft on Uneven Surface: 6 1 Step (curb) (QC): 5 4 Steps (QC): 5 12 Steps (QC): 5 Picking up an Object (QC): 6 Wheel 50 feet with 2 turns (QC: 9 Wheel 150 feet: 9 PT Plan Treatment/Plan Treatment Plan: Continue Plan of Care Treatment Plan: Bed Mobility, Education, Functional Activity Lety, Functional Strength, Group Therapy, Gait, Safety, Therapeutic Exercise, Transfers Treatment Duration: Oct 29, 2021 Frequency: At least 5 of 7 days/Wk (IRF) Estimated Hrs Per Day: 1.5 hours per day Patient and/or Family Agrees t: Yes Safety Risks/Education Patient Education: Steps, Reviewed Precautions, Correct Positioning, Safety Issues Teaching Recipient: Patient Teaching Methods: Discussion Response to Teaching: Verbalize Understanding Time/GCodes Time In: 930 Time Out: 1100 Total Billed Treatment Time: 90 Total Billed Treatment 1, FA x2 (35m), GT x2 (30m) & EX x2 (25m) TAMERA NELSON FURNACE PROCESS PLANT OPERATOR Oct 14, 2021 11:05
[2021-10-14] MEDS ORDERED: OXYC1TAB16 PO (19:42)
[2021-10-14] MEDS ORDERED: NICO1PAT34 TD (19:42)
[2021-10-14] MEDS ORDERED: DIAZ5TAB49 PO (19:42)
[2021-10-14] MEDS ORDERED: DOXY100T2 PO (19:42)
[2021-10-14] MEDS ORDERED: BACL10TA PO (19:42)
[2021-10-14] MEDS ORDERED: SENN1TAB76 PO (19:42)
--- NOTE | 2021-10-14 19:44 | D/C HH Face to Face Order ---
D/C Face to Face Orders Reconcile Patient Problems Problems Reviewed?: Yes Instructions for Patient HH Patient Instructions/FollowUp: [facility] to [facility] care Physician to follow Patient: PCP Discharge Diet for Home: No Restrictions Patient Problems: Traumatic injuries Patient Data-Allergies,Ht & Wt Patient Allergies: Coded Allergies: No Allergy Information Available (Unverified , 10/08/21) Home Health Need/Face to Face Date of Face to Face: Oct 14, 2021 Clinical Findings: Generalized weakness and fatigue, Muscle weakness, Pain with ambulation, Wound infection I have seen Pt qknd-ol-nocf: Yes Discharged To: Home Diagnosis/Conditions: Traumatic injuries Patient is Homebound due to: Muscle weakness Homebound Status Due to the above stated illness, injury or surgical procedure (medical condition or diagnosis) and associated clinical findings, the patient is homebound because of his/her inability to leave home except with aid of a supportive device and/or person AND leaving the home requires a considerable and taxing effort or is medically contraindicated. Pt req the following assistanc: Walker Home Health Nursing Orders Home Health Services Order: Nursing Services, Lime Filter Operator-Evaluate & Treat, Physical Therapy-Evaluate & Treat, Wound Care-Eval/Treat Certify Stmt I certify that this patient is under my care and that I, a nurse practitioner or a physician; a surgical physician assistant working with me, had a face to face encounter that - meets the physician face to face encounter requirements with this patient as dated. ENEDINA MEIER DO Oct 14, 2021 19:44
[2021-10-14 20:02] VITALS: BP 101/61
--- NOTE | 2021-10-15 06:02 | Discharge Summary ---
Diagnosis/Chief Complaint Date of Admission Oct 08, 2021 at 14:39 Date of Discharge Discharge Date: Oct 15, 2021 Discharge Diagnosis Assessment: s/p T10-L4 Fusion Smoker Leukocytosis Anemia acute blood loss Thrombocytosis TBI hx ADHD Incision and drainage 10/13/2021 Plan: Nicotine patch Monitor wbc Add PCT to labs 10/10/2021: Supportive care Incentive spirometer Nicotine patch 10/11/2021: Supportive care Discharge when stable 10/12/2021: Pain control Monitor closely 10/13/2021: Incision management with drainage 10/14/2021: Discharge home tomorrow (1) Trauma (2) Anemia Discharge Summary Discharge Physical Examination Allergies: Coded Allergies: No Allergy Information Available (Unverified , 10/08/21) Vitals & I&Os Vital Signs Date Time Temp Pulse Resp B/P (MAP) Pulse Ox O2 Delivery O2 Flow Rate FiO2 10/15/21 12:38 36.2 123 20 125/69 96 Room Air General Appearance: Alert, Oriented X3, Cooperative Respiratory: Clear to Auscultation Cardiovascular: Regular Rate Psych/Mental Status: Mental Status NL Hospital Course Was the Problem List Reviewed?: Yes Hospital course: Patient had an uneventful hospital course after he was admitted following traumatic injuries with a history of traumatic brain injury history. Patient was able to participate in all therapy. Pain was controlled on pain medication. Bowel function returned back to normal. Overall he was able to improve enough to discharge and go to Dr. Virk neurosurgery appointment re garding incision and drainage. Labs (last 24 hrs) Laboratory Tests 10/09/21 05:10: White Blood Count 21.2H, Red Blood Count 3.55L, Hemoglobin 10.6L, Hematocrit 32L , Mean Corpuscular Volume 90, Mean Corpuscular Hemoglobin 30, Mean Corpuscular Hemoglobin Concent 33, Red Cell Distribution Width 14.0, Platelet Count 678H, Mean Platelet Volume 8.7L, Immature Granulocyte % (Auto) 6, Neutrophils (%) (Auto) 66, Lymphocytes (%) (Auto) 18, Monocytes (%) (Auto) 8, Eosinophils (%) (Auto) 2, Basophils (%) (Auto) 1, Neutrophils # (Auto) 13.9H, Lymphocytes # (Auto) 3.8, Monocytes # (Auto) 1.8H, Eosinophils # (Auto) 0.4H, Basophils # (Auto) 0.1, Immature Granulocyte # (Auto) 1.3H, Neutrophils % (Manual) 70, Lymphocytes % (Manual) 23, Monocytes % (Manual) 7, Platelet Estimate , Clumped Platelets SLIGHT, Polychromasia SLIGHT, Macrocytosis SLIGHT, Sodium Level 135, Potassium Level 3.9, Chloride Level 101, Carbon Dioxide Level 23, Anion Gap 11, Blood Urea Nitrogen 18, Creatinine 0.72, Estimat Glomerular Filtration Rate 114, BUN/Creatinine Ratio 25, Glucose Level 99, Calcium Level 9.0, Corrected Calcium 9.5, Total Bilirubin 0.7, Gamma Glutamyl Transpeptidase 283H, Aspartate Amino Transf (AST/SGOT) 51H, Alanine Aminotransferase (ALT/SGPT) 173H, Alkaline Phosphatase 204H, Total Protein 7.2, Albumin 3.4, Procalcitonin 0.09 10/12/21 10:33: White Blood Count 13.1H, Red Blood Count 3.71L, Hemoglobin 11.0L, Hematocrit 34L , Mean Corpuscular Volume 91, Mean Corpuscular Hemoglobin 30, Mean Corpuscular Hemoglobin Concent 32, Red Cell Distribution Width 14.1, Platelet Count 682H, Mean Platelet Volume 8.4L, Immature Granulocyte % (Auto) 3, Neutrophils (%) (Auto) 71, Lymphocytes (%) (Auto) 15, Monocytes (%) (Auto) 8, Eosinophils (%) (Auto) 2, Basophils (%) (Auto) 1, Neutrophils # (Auto) 9.4H, Lymphocytes # (Auto) 2.0, Monocytes # (Auto) 1.0, Eosinophils # (Auto) 0.3, Basophils # (Auto) 0.1, Immature Granulocyte # (Auto) 0.4H, Sodium Level 134L, Potassium Level 4.0, Chloride Level 101, Carbon Dioxide Level 25, Anion Gap 8, Blood Urea Nitrogen 14, Creatinine 0.81, Estimat Glomerular Filtration Rate 110, BUN/Creatinine Ratio 17, Glucose Level 100, Calcium Level 8.9, Corrected Calcium 9.4, Total Bilirubin 0.6, Aspartate Amino Transf (AST/SGOT) 34, Alanine Aminotransferase (ALT/SGPT) 87H, Alkaline Phosphatase 222H, Total Protein 7.2, Albumin 3.4, Hepatitis C Antibody Non-Reactive Microbiology 10/13/21 Gram Stain - Final, Complete 10/13/21 Wound Culture - Final, Complete Staphylococcus epidermidis See Comments Pending Labs Microbiology Date/Time Source Procedure Growth Status 10/13/21 16:45 Incision Back Gram Stain - Final Complete 10/13/21 16:45 Wound Culture - Final Staphylococcus epidermidis See Comments Complete Laboratory Tests 10/09/21 05:10: White Blood Count 21.2, Red Blood Count 3.55, Hemoglobin 10.6, Hematocrit 32, Mean Corpuscular Volume 90, Mean Corpuscular Hemoglobin 30, Mean Corpuscular Hemoglobin Concent 33, Red Cell Distribution Width 14.0, Platelet Count 678, Mean Platelet Volume 8.7, Immature Granulocyte % (Auto) 6, Neutrophils (%) (Auto) 66, Lymphocytes (%) (Auto) 18, Monocytes (%) (Auto) 8, Eosinophils (%) (Auto) 2, Basophils (%) (Auto) 1, Neutrophils # (Auto) 13.9, Lymphocytes # (Auto) 3.8, Monocytes # (Auto) 1.8, Eosinophils # (Auto) 0.4, Basophils # (Auto) 0.1, Immature Granulocyte # (Auto) 1.3, Neutrophils % (Manual) 70, Lymphocytes % (Manual) 23, Monocytes % (Manual) 7, Platelet Estimate , Clumped Platelets SLIGHT, Polychromasia SLIGHT, Macrocytosis SLIGHT, Sodium Level 135, Potassium Level 3.9, Chloride Level 101, Carbon Dioxide Level 23, Anion Gap 11, Blood Urea Nitrogen 18, Creatinine 0.72, Estimat Glomerular Filtration Rate 114, BUN/Creatinine Ratio 25, Glucose Level 99, Calcium Level 9.0, Corrected Calcium 9.5, Total Bilirubin 0.7, Gamma Glutamyl Transpeptidase 283, Aspartate Amino Transf (AST/SGOT) 51, Alanine Aminotransferase (ALT/SGPT) 173, Alkaline Phosphatase 204, Total Protein 7.2, Albumin 3.4, Procalcitonin 0.09 10/12/21 10:33: White Blood Count 13.1, Red Blood Count 3.71, Hemoglobin 11.0, Hematocrit 34, Mean Corpuscular Volume 91, Mean Corpuscular Hemoglobin 30, Mean Corpuscular Hemoglobin Concent 32, Red Cell Distribution Width 14.1, Platelet Count 682, Mean Platelet Volume 8.4, Immature Granulocyte % (Auto) 3, Neutrophils (%) (Auto) 71, Lymphocytes (%) (Auto) 15, Monocytes (%) (Auto) 8, Eosinophils (%) (Auto) 2, Basophils (%) (Auto) 1, Neutrophils # (Auto) 9.4, Lymphocytes # (Auto) 2.0, Monocytes # (Auto) 1.0, Eosinophils # (Auto) 0.3, Basophils # (Auto) 0.1, Immature Granulocyte # (Auto) 0.4, Sodium Level 134, Potassium Level 4.0, Chloride Level 101, Carbon Dioxide Level 25, Anion Gap 8, Blood Urea Nitrogen 14, Creatinine 0.81, Estimat Glomerular Filtration Rate 110, BUN/Creatinine Ratio 17, Glucose Level 100, Calcium Level 8.9, Corrected Calcium 9.4, Total Bilirubin 0.6, Aspartate Amino Transf (AST/SGOT) 34, Alanine Aminotransferase (ALT/SGPT) 87, Alkaline Phosphatase 222, Total Protein 7.2, Albumin 3.4, Hepatitis C Antibody Non-Reactive Discharge Home Medications: Active Scripts Active Stool Softener-Laxative Tablet (Sennosides/Docusate Sodium) 1 Each Tablet 1 Ea PO BID Diazepam 5 Mg Tablet 5 Mg PO Q8H PRN Percocet 7.5-325 mg Tablet (Oxycodone HCl/Acetaminophen) 1 Each Tablet 1-2 Each PO Q4H PRN Nicoderm Cq (Nicotine) 1 Each Patch.td24 21 Mg TD DAILY@0900 Baclofen 10 Mg Tablet 10 Mg PO TID PRN Doxycycline Hyclate 100 Mg Tablet 100 Mg PO BID@07,17 Instructions to patient/family Please see electronic discharge instructions given to patient. Diagnosis/Problems Diagnosis/Problems (1) Trauma (2) Anemia ENEDINA MEIER DO Oct 15, 2021 06:02
[2021-10-15] MEDS: oxyCODONE/APAP 7.5-325 MG (PERCOCET 7.5) TABLET PO PRN (06:28)
[2021-10-15] MEDS: DOXYCYCLINE 100 MG (VIBRAMYCIN) TABLET PO SCH (06:28)
[2021-10-15] MEDS: polyethylene glycoL POWDER 17 GM (MIRALAX) PACK PO SCH (07:43)
[2021-10-15 08:00] VITALS: BP 125/69
--- NOTE | 2021-10-15 08:27 | Occ Therapy Progress Note ---
Therapy Progress Note OT offered shower to pt at 0750 this morning, pt replied that this therapist was an hour late. Pt had already showered with nursing staff this AM. JENNA BUSTOS OT Oct 15, 2021 08:27
[2021-10-15] MEDS: NICOTINE 21 MG (NICODERM) PATCH TD SCH (09:08)
[2021-10-15] MEDS: SENNA W/DOCUSATE (SENOKOT S) TABLET PO SCH (09:08)
[2021-10-15] MEDS: ENOXAPARIN 40 MG/0.4 ML (LOVENOX) SYR SC SCH (09:08)
[2021-10-15] MEDS: DOCUSATE SODIUM 100 MG (COLACE) CAP PO SCH (09:08)
[2021-10-15] MEDS: NICOTINE PATCH REMOVAL TP SCH (09:08)
[2021-10-15] MEDS: DIAZEPAM 5 MG (VALIUM) TABLET PO PRN (09:17)
--- NOTE | 2021-10-15 10:59 | Therapy Team Discharge Summary ---
Therapy Discharge Summary Discharge Recommendations Date of Discharge Physical Therapy Patient came to rehab with s/p T10-L4 Fusion and other fx. Upon evaluation patient performed rolling and supine <-> sit with independence, sit <-> stand and transfers CGA, car transfer CGA, ambulated 200' with a rolling walker with CGA (including 50' with at least 2 turns of 90 degrees and 10' over an uneven surface), went up and down 4 steps using 2 handrails with CGA, and picked up an object from the floor with a investment manager with CGA. Patient has been performing bed mobility and transfer training, balance and endurance training, functional strengthening, stair training, gait training, and education. Patient has made good progress and has met all of his correction goals except for picking up an object from the floor (last QC score was not tested). Now, patient performs bed mobility and transfers with independence, independent with car transfer, ambulates over 500' with a rolling walker with independence (including 50' with at least 2 turns of 90 degrees and 10' over an uneven surface), and can go up and down 12 steps using 2 handrails with setup. Patient is being discharged from this facility today and will be discharged from PT at this time. Occupational Therapy Decreased Activ Tolerance, Decreased Safety Aware, Decreased UE Strength, Impaired Funct Balance, Impaired I ADL's, Impaired Self-Care Skills PT Security Risk Analyst Goals Security Risk Analyst Goals PT [facility] Goals Time Frame: Oct 29, 2021 Roll Left to Right (QC): 6 Sit to Lying (QC): 6 Lying-Sitting on Side/Bed(QC): 6 Sit to Stand (QC): 6 Chair/Faa-lk-Ovaej Xfer(QC): 6 Car Transfer (QC): 6 Does the Patient Walk: Yes Walk 10 feet (QC): 6 Walk 10ft-Uneven Surface(QC): 6 Walk 50ft with 2 Turns (QC): 6 Walk 150 ft (QC): 6 Wheel 50 feet with 2 turns (QC: 9 1 Step (curb) (QC): 5 4 Steps (QC): 5 12 Steps (QC): 5 Picking up an Object (QC): 6 OT Security Risk Analyst Goals Security Risk Analyst Goals Time Frame: Oct 30, 2021 Eating (QC): 6 Oral Hygiene (QC): 6 Shower/Bathe Self (QC): 6 Upper Body Dressing (QC): 6 Lower Body Dressing (QC): 6 On/Off Footwear (QC): 6 Toileting Hygiene (QC): 6 Toilet/Commode Transfer (QC): 6 Additional Goals: 1-Demonstrate ADL Tasks, 2-Verbalize Understanding, 3- ImproveStrength/Lety 1=Demonstrate adherence to instructed precautions during ADL tasks. 2=Patient will verbalize/demonstrate understanding of assistive devices/modifications for ADL. 3=Patient will improve strength/tolerance for activity to enable patient to perform ADL's. DEAN HARTMAN PT Oct 15, 2021 10:59
--- NOTE | 2021-10-15 11:03 | Therapy Team Discharge Summary ---
Therapy Discharge Summary Discharge Recommendations Date of Discharge Occupational Therapy Pt admitted to ARU s/p T10-L4 fusion. At OF, pt was independent with ADLs and functional mobility, only using a cane/crutch in public. Upon initial evaluation, pt was independent with eating and oral care, CGA lower body víctor ssing, and min A showering, UE dressing, footwear and toileting. OT txs focused on increasing BUE strength and activity tolerance, education on donning/doffing TLSO, neck brace and CAM boot, and increasing independence with ADLs and functional mobility. At discharge, pt was independent with eating, oral care and toileting, requiring set up assistance with all other ADLs. Pt made good functional progress towards goals, but did not attain all goals. OT recommendations include a shower chair. Pt discharged from facility, d/c from OT. Decreased Activ Tolerance, Decreased Safety Aware, Decreased UE Strength, Impaired Funct Balance, Impaired I ADL's, Impaired Self-Care Skills PT Usp Goals Abattoir Supervisor Goals PT [facility] Goals Time Frame: Oct 29, 2021 Roll Left to Right (QC): 6 Sit to Lying (QC): 6 Lying-Sitting on Side/Bed(QC): 6 Sit to Stand (QC): 6 Chair/Bao-vw-Vxqqr Xfer(QC): 6 Car Transfer (QC): 6 Does the Patient Walk: Yes Walk 10 feet (QC): 6 Walk 10ft-Uneven Surface(QC): 6 Walk 50ft with 2 Turns (QC): 6 Walk 150 ft (QC): 6 Wheel 50 feet with 2 turns (QC: 9 1 Step (curb) (QC): 5 4 Steps (QC): 5 12 Steps (QC): 5 Picking up an Object (QC): 6 OT Abattoir Supervisor Goals Usp Goals Time Frame: Oct 30, 2021 Eating (QC): 6 (met) Oral Hygiene (QC): 6 (met) Shower/Bathe Self (QC): 6 (not met) Upper Body Dressing (QC): 6 (not met) Lower Body Dressing (QC): 6 (not met) On/Off Footwear (QC): 6 (not met) Toileting Hygiene (QC): 6 (met) Toilet/Commode Transfer (QC): 6 Additional Goals: 1-Demonstrate ADL Tasks, 2-Verbalize Understanding, 3- ImproveStrength/Lety 1=Demonstrate adherence to instructed precautions during ADL tasks. 2=Patient will verbalize/demonstrate understanding of assistive devices/modifications for ADL. 3=Patient will improve strength/tolerance for activity to enable patient to perform ADL's. JENNA BUSTOS OT Oct 15, 2021 11:03
[2021-10-15 12:38] VITALS: BP 125/69
== END 2021-10-15 09:45 | disposition home health service (06) | DRG 560 ==
PROVIDERS: ADMIT Internal Medicine; ATTEND Internal Medicine
DX: S32.029D Unspecified fracture of second lumbar vertebra, subsequent encounter for fracture with routine healing (principal); D62 Acute posthemorrhagic anemia; S12.400D Unspecified displaced fracture of fifth cervical vertebra, subsequent encounter for fracture with routine healing; S82.52XD Displaced fracture of medial malleolus of left tibia, subsequent encounter for closed fracture with routine healing; D75.839 Thrombocytosis, unspecified; F41.9 Anxiety disorder, unspecified; F98.8 Other specified behavioral and emotional disorders with onset usually occurring in childhood and adolescence; F43.10 Post-traumatic stress disorder, unspecified; F17.210 Nicotine dependence, cigarettes, uncomplicated; F90.9 Attention-deficit hyperactivity disorder, unspecified type; Z87.820 Personal history of traumatic brain injury; W20.8XXD Other cause of strike by thrown, projected or falling object, subsequent encounter
CPT/HCPCS: 36415; 80053; 82977; 84145; 85007; 85025; 85027; 86803; 87070; 87077; 87205

== ENCOUNTER → 2021-10-28 | Outpatient (CLI) | payer MEDICARE ==
[~2021-10-28] MED LIST: BACI28.4 TP; BACL10TA PO; DIAZ5TAB49 PO; DOXY100T2 PO; NICO1PAT34 TD; OXYC1TAB15 PO; OXYC1TAB16 PO; SENN1TAB76 PO
--- NOTE | 2021-10-28 18:02 | Diagnostic Imaging Report ---
INDICATION: Lumbar spine fractures. Previous thoracolumbar fusion. Follow-up. COMPARISON: None. FINDINGS: Frontal and lateral radiographic views of the thoracic spine were obtained. Patient is status post previous thoracolumbar fusion. Inferior margins of the hardware are not entirely included in the [id number]-[id number], but interpedicular screws at the T10, T11 and T12 levels appear well seated. Visualized portions of the posterior fusion rods are intact. Compression deformities of L1 and L2 are noted. Thoracic vertebral body heights are maintained. There is no evidence of acute fracture of the thoracic spine. Static alignment is preserved, although the cervicothoracic junction is obscured by overlying overlying osseous and soft tissue structures. There are mild multilevel degenerative changes consistent primarily of intervertebral disc height loss with anterior endplate osteophyte formations. Included portions of the lungs are clear. IMPRESSION: 1. Postsurgical changes of previous thoracolumbar fusion. Visualized portions of the hardware are intact and appear well-seated. 2. No acute fracture or dislocation of the thoracic spine. Dictated by: Dictated on workstation # [id number]
--- NOTE | 2021-10-28 18:03 | Diagnostic Imaging Report ---
INDICATION: Follow-up traumatic injury. Spine fracture. COMPARISON: None. FINDINGS: Frontal and lateral radiographic views of the lumbar spine were obtained. Postsurgical changes of previous thoracolumbar fusion are identified. Superior margins of the hardware are not fully included in the yeavl-em-yltl, but the interpedicular screws at L2, L3 and L4 appear appropriately positioned. Visualized portions of the posterior fusion rods are intact. Note is also made of two partially threaded screws traversing the sacrum and bilateral SI joints. Surgical skin mojgan are present. No unexpected radiopaque foreign bodies are seen. Static alignment of the lumbar spine is maintained. There is no significant anterolistheses or retrolisthesis. There is no evidence of jumped facets. Compression deformities of the L1 and L2 vertebral bodies are noted and appear acute. There is no prior available for comparison. IMPRESSION: 1. Acute appearing compression fractures of the L1 and L2 vertebral bodies. 2. Postsurgical changes of previous thoracolumbar fusion. Again, thoracic portions of the hardware are not entirely included in the xonyc-ic-taso, but there is otherwise no evidence of hardware fracture or failure. Dictated by: Dictated on workstation # [id number]
--- NOTE | 2021-10-28 18:04 | Diagnostic Imaging Report ---
INDICATION: Surgical follow-up. Injury. Pain. COMPARISON: None. FINDINGS: Frontal, lateral and odontoid views of the cervical spine were obtained. Cervical spine is seen down to the inferior endplate of C7 on the lateral view. C7-T1 level is obscured. Static alignment is maintained. There is no significant anterolistheses or retrolisthesis. There is no evidence of jumped facets. Odontoid view shows normal C1-C2 relationship. Vertebral body heights are maintained. No acute fracture is identified. Mild multilevel degenerative changes are present. Included portions of the lung apices are clear. Advanced dental caries are noted. IMPRESSION: 1. No acute fracture is seen on this exam. Please note, a nondisplaced fracture may be occult on radiographs. Correlation with prior cross-sectional imaging would be of benefit. 2. Mild multilevel degenerative changes. 3. Advanced dental caries. Dictated by: Dictated on workstation # [id number]
== END ==
LOC: RAD 15:36
PROVIDERS: ATTEND Nurse Practitioner Family
DX: S12.501D Unspecified nondisplaced fracture of sixth cervical vertebra, subsequent encounter for fracture with routine healing (principal); M48.56XA Collapsed vertebra, not elsewhere classified, lumbar region, initial encounter for fracture; M47.812 Spondylosis without myelopathy or radiculopathy, cervical region; K02.9 Dental caries, unspecified; Z98.1 Arthrodesis status; X58.XXXD Exposure to other specified factors, subsequent encounter
CPT/HCPCS: 72040; 72072; 72100

== ENCOUNTER 2022-04-23 19:29 | Emergency (ER) | payer MEDICARE ==
[~2022-04-23] VITALS: Ht 155 cm; Wt 90.0 kg
--- NOTE | 2022-04-23 19:39 | ED Lower Extremity ---
General Chief Complaint: Lower Extremity Stated Complaint: L ANKLE PAIN History of Present Illness Date Seen by Provider: Apr 23, 2022 Time Seen by Provider: 19:37 Initial Comments 46-year-old male presents with left ankle pain. Patient reports that at the beginning of this year he had an oak tree fall on it and it broke his ankle. That about a week and a half ago he had some large dogs ran to his leg. That since then he has had pain in the left ankle with some swelling. Reports that he feels like the pain has been getting worse over the last week and a half. He is able to ambulate but is painful. He does have some mild swelling. He does not follow-up with his primary care provider or anybody else to have it reevaluated. Allergies and Home Medications Allergies Coded Allergies: No Allergy Information Available (Unverified , 10/08/21) Patient Home Medication List Home Medication List Reviewed: Yes Baclofen (Baclofen) 10 Mg Tablet, 10 MG PO TID PRN for MUSCLE SPASMS Prescribed by: ENEDINA MEIER on 10/14/211941 Diazepam (Diazepam) 5 Mg Tablet, 5 MG PO Q8H PRN for MUSCLE SPASMS/ANXIETY Prescribed by: ENEDINA MEIER on 10/14/211942 Doxycycline Hyclate (Doxycycline Hyclate) 100 Mg Tablet, 100 MG PO BID@07,17 Prescribed by: ENEDINA MEIER on 10/14/211941 Nicotine (Nicoderm Cq) 1 Each Patch.td24, 21 MG TD DAILY@0900 Prescribed by: ENEDINA MEIER on 10/14/211941 Oxycodone HCl/Acetaminophen (Percocet 7.5-325 mg Tablet) 1 Each Tablet, 1-2 EACH PO Q4H PRN for PAIN-MODERATE (5-7) Prescribed by: ENEDINA MEIER on 10/14/211942 Sennosides/Docusate Sodium (Stool Softener-Laxative Tablet) 1 Each Tablet, 1 EA PO BID Prescribed by: ENEDINA MEIER on 10/14/211941 Review of Systems Constitutional: no symptoms reported EENTM: no symptoms reported Respiratory: no symptoms reported Cardiovascular: no symptoms reported Gastrointestinal: no symptoms reported Genitourinary: no symptoms reported Musculoskeletal: see HPI Skin: see HPI Psychiatric/Neurological: No Symptoms Reported Past Xaazshk-Cfuwem-Ponbhx Hx Past Medical History Orthopedic Traumatic Brain Injury Anxiety, Depression Physical Exam Vital Signs Vital Signs - First Documented 04/23/22 19:43 Temp 36.3 Pulse 88 Resp 18 B/P (MAP) 127/86 (100) Pulse Ox 96 O2 Delivery Room Air Capillary Refill : Height, Weight, BMI Height: '" Weight: lbs. oz. kg; 25.34 BMI Method: General Appearance: WD/WN HEENT: PERRL/EOMI Neck: full range of motion, supple Cardiovascular: normal peripheral pulses, regular rate, rhythm Respiratory: lungs clear, normal breath sounds Gastrointestinal: non tender Hips: bilateral hip non-tender, bilateral hip normal inspection Legs: bilateral leg non-tender, bilateral leg normal inspection, bilateral leg normal range of motion Knees: bilateral knee non-tender, bilateral knee normal inspection, bilateral knee normal range of motion Ankles: right ankle normal inspection, right ankle normal range of motion, right ankle no evidence of injury; left ankle soft tissue tenderness, left ankle swelling Neurologic/Psychiatric: alert, normal mood/affect, oriented x 3 Skin: normal color, warm/dry Progress/Results/Core Measures Results/Orders My Orders Orders - OLGA BLACKWELL DO Ankle 3 View Left (04/23/22 19:40) Gel Ankle Brace (04/23/22 19:56) Vital Signs/I&O 04/23/22 19:43 Temp 36.3 Pulse 88 Resp 18 B/P (MAP) 127/86 (100) Pulse Ox 96 O2 Delivery Room Air Progress Progress Note : Progress Note Patient with potential mild avulsion fracture. We will treat him conservatively with an ankle stirrup. Patient should follow-up with a primary care provider as needed. He can use Voltaren and lidocaine topical as needed for pain control. Also warm moist heat. Patient stable and discharged Diagnostic Imaging Diagonstic Imaging: Xray Plain Films/CT/US/NM/MRI: ankle Comments Date of Exam:04/23/22 ANKLE 3 VIEW LEFT INDICATION: Ankle injury. COMPARISON: None. FINDINGS: Three radiographic views of the left ankle were obtained. There is mild generalized soft tissue edema. Small osseous fragment is noted adjacent to the distal tip of the medial malleolus and may be on the basis of an avulsed fracture fragment. Otherwise, remaining osseous structures are intact. Joint spaces are maintained. No unexpected radiopaque foreign bodies are seen. IMPRESSION: 1. Findings consistent with avulsion injury of the medial malleolus; potentially acute. 2. Mild generalized soft tissue swelling. Departure Impression Primary Impression: Sprain and strain of ankle Disposition: HOME, SELF-CARE Condition: Stable Departure-Patient Inst. Referrals: VICTORIA STARKS PA-C (PCP/Family) Primary Care Physician Patient Instructions: Ankle Sprain (DC), Ankle Fracture ED, Ankle Sprain ED Add. Discharge Instructions: Warm moist heat for 20 minutes at a time 3-4 times daily 4% topical lidocaine with menthol cream or gel. Use as directed on package as needed Voltaren/diclofenac cream or gel. Use as directed on package All discharge instructions reviewed with patient and/or family. Voiced understanding. OLGA BLACKWELL DO Apr 23, 2022 19:39
--- NOTE | 2022-04-23 20:02 | Diagnostic Imaging Report ---
INDICATION: Ankle injury. COMPARISON: None. FINDINGS: Three radiographic views of the left ankle were obtained. There is mild generalized soft tissue edema. Small osseous fragment is noted adjacent to the distal tip of the medial malleolus and may be on the basis of an avulsed fracture fragment. Otherwise, remaining osseous structures are intact. Joint spaces are maintained. No unexpected radiopaque foreign bodies are seen. IMPRESSION: 1. Findings consistent with avulsion injury of the medial malleolus; potentially acute. 2. Mild generalized soft tissue swelling. Dictated by: Dictated on workstation # [id number]
[2022-04-23 20:15] VITALS: BP 127/86
== END 2022-04-23 20:15 | disposition home or self-care (01) ==
LOC: EDUNIT# 19:29 → ER FS 19:30
DX: S93.402A Sprain of unspecified ligament of left ankle, initial encounter (principal); S96.912A Strain of unspecified muscle and tendon at ankle and foot level, left foot, initial encounter; Z28.310 Unvaccinated for COVID-19; W54.1XXA Struck by dog, initial encounter
CPT/HCPCS: 73610; 99283; L4350